=== PATIENT | male | born 1995 | race Caucasian/White ===

== ENCOUNTER 2023-01-25 16:38 | Inpatient (IN) | payer BC ==
[2023-01-25] MEDS ORDERED: HYDROmorphone 0.5 MG/0.5 ML SYRINGE IVP STA (17:17)
--- NOTE | 2023-01-25 17:21 | ED ---
General Adult HPI - General Chief complaint: Fall Stated complaint: Fall Time Seen by Provider: 01/25/23 17:13 Source: patient, RN notes reviewed Limitations: no limitations - History of Present Illness Initial comments: Patient is a pleasant 27-year-old male presenting to the emergency department following fall. Incident occurred around 2:00 today. Patient fell from a ladder, approximately 8 feet. Patient was putting stuff in his attic. Patient does not recall hitting the ground. Patient believes he did hit his head. Patient has mild headache. Patient has discomfort mostly the left side of his trunk posteriorly. Patient does feel a little bit short of breath. Patient has been ambulatory. Patient denies extremity injury. - Related Data Home Medications Medication Instructions Recorded Confirmed Gabapentin [Neurontin] 300 mg PO BID 01/25/23 01/25/23 cloNIDine HCL [Catapres] 0.1 mg PO BID 01/25/23 01/25/23 traZODone HCL [Desyrel] 50 mg PO HS 01/25/23 01/25/23 Allergies Allergy/AdvReac Type Severity Reaction Status Date / Time No Known Allergies Allergy Verified 01/25/23 18:39 Review of Systems ROS Statement: Those systems with pertinent positive or pertinent negative responses have been documented in the HPI. ROS Other: All systems not noted in ROS Statement are negative. Constitutional: Denies: fever Eyes: Denies: eye pain ENT: Denies: ear pain Respiratory: Reports: as per HPI, dyspnea Endocrine: Denies: fatigue Gastrointestinal: Denies: abdominal pain Genitourinary: Denies: dysuria Musculoskeletal: Reports: as per HPI, back pain Skin: Denies: rash Neurological: Denies: weakness, confusion Past Medical History Past Medical History: No Reported History History of Any Multi-Drug Resistant Organisms: None Reported Past Surgical History: No Surgical Hx Reported Smoking Status: Current every day smoker Past Alcohol Use History: Occasional Past Drug Use History: None Reported General Exam Limitations: no limitations General appearance: alert, in no apparent distress Head exam: Present: other (Mild soft tissue swelling left posterior parietal) Eye exam: Present: normal appearance, PERRL, EOMI. Absent: nystagmus ENT exam: Present: normal oropharynx Neck exam: Present: normal inspection. Absent: tenderness Respiratory exam: Present: decreased breath sounds (Left-sided) Cardiovascular Exam: Present: tachycardia GI/Abdominal exam: Present: soft. Absent: tenderness Extremities exam: Present: normal inspection, full ROM. Absent: tenderness Neurological exam: Present: alert, oriented X3, CN II-XII intact. Absent: motor sensory deficit Expanded Motor strength exam: RUE: 5, LUE: 5, RLE: 5, LLE: 5 Eye Response: (4) open spontaneously Motor Response: (6) obeys commands Verbal Response: (5) oriented Psychiatric exam: Present: normal affect, normal mood Skin exam: Present: normal color Course Vital Signs 01/25/23 01/25/23 01/25/23 16:43 17:30 18:00 Temperature 97.3 F L Pulse Rate 144 H 112 H 120 H Respiratory 18 20 20 Rate Blood Pressure 118/73 114/83 147/96 O2 Sat by Pulse 99 99 96 Oximetry 01/25/23 18:30 Temperature Pulse Rate 106 H Respiratory 16 Rate Blood Pressure 141/73 O2 Sat by Pulse 99 Oximetry - Reevaluation(s) Reevaluation #1: 01/25/23 17:25 Case was discussed with Dr. Atkinson who agrees with upgrade patient to a level II trauma. He also agrees with Thora vent 01/25/23 17:58 Chest x-ray interpreted by myself prior to discussion with Dr. Atkinson did show large pneumothorax on the left side. This was discussed also with Dr. Pat. Patient did go to computed tomography scan and Thora vent was placed immediately upon return back to the room. EKG Findings - EKG Results: EKG: interpreted by ERMD (Atrial tachycardia.rsr v1v2), normal axis, normal QRS, normal ST/T EKG shows: tachycardia Procedures - Chest Tube Insertion Consent Obtained: written consent Side of Procedure: left Indication: Pneumothorax Placed on monitor/pulse oximetry: Yes Site Prep: Chloroprep Local Anesthesia: Lidocaine 1% Insertion Site: Other (Second/third intercostal space mid clavicular line) Scalpel: #11 Tube Size ([place]): Other (Thora vent was used) Repeat X-ray Results: Other (Pneumothorax decreased to approximately 25%.) Patient Tolerated Procedure: well, no complications Medical Decision Making - Medical Decision Making Was pt. sent in by a medical professional or institution (, PA, PASSENGER COACH DRIVER, urgent care, hospital, or fpc...) When possible be specific @ -[No] Did you speak to anyone other than the patient for history (EMS, parent, family, police, friend...)? What history was obtained from this source @ -[No] Did you review nursing and triage notes (agree or disagree)? Why? @ -[I reviewed and agree with nursing and triage notes] Were old charts reviewed (outside hosp., previous admission, EMS record, old EKG, old radiological studies, urgent care reports/EKG's, fpc records)? Report findings @ -[No old charts were reviewed] Differential Diagnosis (chest pain, altered mental status, abdominal pain women, abdominal pain men, vaginal bleeding, weakness, fever, dyspnea, syncope, headache, dizziness, GI bleed, back pain, seizure, CVA, palpatations, mental health)? @ -[Differential Headache: Migraine, tension, cluster, carbon monoxide, central venous thrombosis, pension karma temporal arteritis, acute closure glaucoma, intercranial hemorrhage, mastoiditis, sinusitis, head injury, this is not meant to be an all-inclusive list. EKG interpreted by me (3pts min.). @ -[As above] X-rays interpreted by me (1pt min.). @ -[Chest x-ray shows 50% pneumothorax on the left. Pelvis x-ray shows no acute process. Repeat chest x-ray shows improvement of pneumothorax] CT interpreted by me (1pt min.). @ -Reports reviewed U/S interpreted by me (1pt. min.). @ -[None done] What testing was considered but not performed or refused? (CT, X-rays, U/S, labs)? Why? @ -[None] What meds were considered but not given or refused? Why? @ -[None] Did you discuss the management of the patient with other professionals (professionals i.e. , PA, PASSENGER COACH DRIVER, lab, RT, psych nurse, social services aide, welder fitter, teacher, safety officer, piano case and bench assembler)? Give summary @ -Case was discussed with Dr. Atkinson, who will admit for trauma call. He does request [place] and pulmonary consult. Was smoking cessation discussed for >3mins.? @ -[No] Was critical care preformed (if so, how long)? @ -[40 minutes critical care time] Were there social determinants of health that impacted care today? How? (Homelessness, low income, unemployed, alcoholism, drug addiction, trans portation, low edu. Level, literacy, decrease access to med. care, custodial, rehab)? @ -[No] Was there de-escalation of care discussed even if they declined (Discuss DNR or withdrawal of care, Hospice)? DNR status @ -[No] What co-morbidities impacted this encounter? (DM, HTN, Smoking, COPD, CAD, Cancer, CVA, ARF, Chemo, Hep., AIDS, mental health diagnosis, sleep apnea, morbid obesity)? @ -[None] Was patient admitted / discharged? Hospital course, mention meds given and route, prescriptions, significant lab abnormalities, going to OR and other pertinent info. @ -Patient reevaluated and updated. Patient resting comfortably in bed. Patient will be admitted Undiagnosed new problem with uncertain prognosis? @ -[No] Drug Therapy requiring intensive monitoring for toxicity (Heparin, Nitro, Insulin, Cardizem)? @ -[No] Were any procedures done? @ -[No] Diagnosis/symptom? @ -Pneumothorax, lumbar transverse process fracture Acute, or Chronic, or Acute on Chronic? @ -Acute, acute Uncomplicated (without systemic symptoms) or Complicated (systemic symptoms)? @ -[default] Side effects of treatment? @ -[No] Exacerbation, Progression, or Severe Exacerbation? @ -[No] Poses a threat to life or bodily function? How? (Chest pain, [place], [place], pneumonia, PE, COPD, DKA, ARF, appy, cholecystitis, CVA, Diverticulitis, Homicidal, Suicidal, threat to staff... and all critical care pts) @ -[No] - Lab Data Result diagrams: 01/25/23 17:23 01/25/23 17:23 Lab Results 01/25/23 01/25/23 01/25/23 Range/Units 17: 17: 17: WBC 19.8 H (3.8-10.6) k/uL RBC 4.89 (4.30-5.90) m/uL Hgb 15.8 (13.0-17.5) gm/dL Hct 45.1 (39.0-53.0) % MCV 92.3 (80.0-100.0) fL MCH 32.4 (25.0-35.0) pg MCHC 35.0 (31.0-37.0) g/dL RDW 13.3 (11.5-15.5) % Plt Count 429 (150-450) k/uL MPV 7.0 Neutrophils % 91 % Lymphocytes % 4 % Monocytes % 3 % Eosinophils % 1 % Basophils % 1 % Neutrophils # 18.1 H (1.3-7.7) k/uL Lymphocytes # 0.8 L (1.0-4.8) k/uL Monocytes # 0.7 (0-1.0) k/uL Eosinophils # 0.2 (0-0.7) k/uL Basophils # 0.1 (0-0.2) k/uL PT 10.5 (9.0-12.0) sec INR 1.0 (<1.2) APTT 23.3 (22.0-30.0) sec Sodium 139 (137-145) mmol/L Potassium 4.2 (3.5-5.1) mmol/L Chloride 104 (98-107) mmol/L Carbon Dioxide 27 (22-30) mmol/L Anion Gap 8 mmol/L BUN 12 (9-20) mg/dL Creatinine 0.84 (0.66-1.25) mg/dL Est GFR (CKD-EPI)AfAm >90 (>60 ml/min/1.73 sqM) Est GFR (CKD-EPI)NonAf >90 (>60 ml/min/1.73 sqM) Glucose 106 H (74-99) mg/dL Calcium 9.4 (8.4-10.2) mg/dL Total Bilirubin 1.7 H (0.2-1.3) mg/dL AST 74 H (17-59) U/L ALT 46 (4-49) U/L Alkaline Phosphatase 70 (38-126) U/L Total Protein 7.7 (6.3-8.2) g/dL Albumin 5.0 (3.5-5.0) g/dL Serum Alcohol <10 mg/dL Blood Type Recheck Bld Type Recheck Status Spec Expiration Date 01/25/23 Range/Units 17:23 WBC (3.8-10.6) k/uL RBC (4.30-5.90) m/uL Hgb (13.0-17.5) gm/dL Hct (39.0-53.0) % MCV (80.0-100.0) fL MCH (25.0-35.0) pg MCHC (31.0-37.0) g/dL RDW (11.5-15.5) % Plt Count (150-450) k/uL MPV Neutrophils % % Lymphocytes % % Monocytes % % Eosinophils % % Basophils % % Neutrophils # (1.3-7.7) k/uL Lymphocytes # (1.0-4.8) k/uL Monocytes # (0-1.0) k/uL Eosinophils # (0-0.7) k/uL Basophils # (0-0.2) k/uL PT (9.0-12.0) sec INR (<1.2) APTT (22.0-30.0) sec Sodium (137-145) mmol/L Potassium (3.5-5.1) mmol/L Chloride (98-107) mmol/L Carbon Dioxide (22-30) mmol/L Anion Gap mmol/L BUN (9-20) mg/dL Creatinine (0.66-1.25) mg/dL Est GFR (CKD-EPI)AfAm (>60 ml/min/1.73 sqM) Est GFR (CKD-EPI)NonAf (>60 ml/min/1.73 sqM) Glucose (74-99) mg/dL Calcium (8.4-10.2) mg/dL Total Bilirubin (0.2-1.3) mg/dL AST (17-59) U/L ALT (4-49) U/L Alkaline Phosphatase (38-126) U/L Total Protein (6.3-8.2) g/dL Albumin (3.5-5.0) g/dL Serum Alcohol mg/dL Blood Type Recheck No Previous Record Bld Type Recheck Status CABO Indicated Spec Expiration Date 01/28/20232322 Critical Care Time Critical Care Time: Yes Total Critical Care Time: 40 Disposition Clinical Impression: Fall, Pneumothorax, Lumbar transverse process fracture Disposition: ADMITTED IP TO THIS [facility] Condition: Serious Is patient prescribed a controlled substance at d/c from ED?: No Referrals: Javier Ceballos DO [Primary Care Provider] - 1-2 days Time of Disposition: 18:54
--- NOTE | 2023-01-25 17:27 | XR ---
EXAMINATION TYPE: XR chest 2V DATE OF EXAM: 01/25/2023 COMPARISON: NONE HISTORY: Left-sided rib pain Fall. TECHNIQUE: 2 views FINDINGS: Heart and mediastinum are normal. There is a left-sided pneumothorax approximately 50%. The re is increased density at the left lung base likely from hiatal hernia. Right lung is clear. No pleu ral effusion. No rib fracture seen. No evidence of fracture of the thoracic spine. IMPRESSION: Large left-sided pneumothorax. Atelectasis is patchy in the left lung. No obvious rib fra cture. Possible hiatal hernia.
[2023-01-25 17:37] LABS: Basophils # (A) 0.1 k/uL (0-0.2); Basophils % (A) 1 %; Eosinophils # (A) 0.2 k/uL (0-0.7); Eosinophils % (A) 1 %; HCT 45.1 % (39.0-53.0); HGB 15.8 gm/dL (13.0-17.5); Lymphocytes # (A) 0.8 k/uL (1.0-4.8); Lymphocytes % (A) 4 %; MCH 32.4 pg (25.0-35.0); MCV 92.3 fL (80.0-100.0); Monocytes # (A) 0.7 k/uL (0-1.0); Monocytes % (A) 3 %; Neutrophils # (A) 18.1 k/uL (1.3-7.7); Neutrophils % (A) 91 %; Platelet Count 429 k/uL (150-450); RBC 4.89 m/uL (4.30-5.90); RDW 13.3 % (11.5-15.5); WBC 19.8 k/uL (3.8-10.6)
[2023-01-25 17:50] LABS: ALT 46 U/L (4-49); AST 74 U/L (17-59); African American GFR (CKD) >90 (>60 ml/min/1.73 sqM); Alcohol <10 mg/dL; Alkaline Phosphatase 70 U/L (38-126); Anion Gap 8 mmol/L; Blood Urea Nitrogen 12 mg/dL (9-20); Calcium 9.4 mg/dL (8.4-10.2); Carbon Dioxide 27 mmol/L (22-30); Chloride 104 mmol/L (98-107); Glucose 106 mg/dL (74-99); Non-African American GFR(CKD) >90 (>60 ml/min/1.73 sqM); Partial Thromboplastin Time 23.3 sec (22.0-30.0); Potassium 4.2 mmol/L (3.5-5.1); Prothrombin Time 10.5 sec (9.0-12.0); Sodium 139 mmol/L (137-145); Total Bilirubin 1.7 mg/dL (0.2-1.3); Total Protein 7.7 g/dL (6.3-8.2)
--- NOTE | 2023-01-25 17:50 | XR ---
EXAMINATION TYPE: XR pelvis AP view DATE OF EXAM: 01/25/2023 COMPARISON: NONE HISTORY: Pain TECHNIQUE: Single view FINDINGS: Pelvic ring is intact. Proximal femurs and hip joints are intact. Sacroiliac joints are int act. IMPRESSION: Normal pelvis. No fracture.
--- NOTE | 2023-01-25 18:12 | CT ---
EXAMINATION TYPE: CT brain cspine wo con DATE OF EXAM: 01/25/2023 COMPARISON: None HISTORY: fall, no loc CT DLP: 1268.8 mGycm Automated exposure control for dose reduction was used. Images of the brain and cervical spine obtained with no contrast. Ventricles have normal size. There is no mass effect or midline shift. No sign of intracranial hemorr carmina. The calvarium is intact. The skull base is intact. There is normal aeration of the mastoid sinu ses. There is normal spacing and alignment of the cervical vertebra. Posterior elements are intact. F acet joints are intact. Prevertebral soft tissues are intact. IMPRESSION: Normal unenhanced head CT scan. No evidence of traumatic injury. Normal CT scan of the cervical spine.
--- NOTE | 2023-01-25 18:22 | CT ---
EXAMINATION TYPE: CT ChestAbdPelvis w con DATE OF EXAM: 01/25/2023 COMPARISON: None HISTORY: fall, SOB, right flank pain CT DLP: 894.8 mGycm Automated exposure control for dose reduction was used. CONTRAST: Performed with IV Contrast, patient injected with 100 mL of Isovue 300. Images obtained from the thoracic inlet to the floor of the pelvis with the IV contrast. There is approximately 50% left-sided pneumothorax. There is some infiltrate and atelectasis left low er lobe with fluid level could relate to pulmonary contusion and hemorrhage. There is small amount of pleural fluid. Heart size is normal. Thoracic aorta is intact. No aneurysm. No mediastinal adenopath y. There are no hilar masses. The right lung is clear. Liver spleen pancreas appear intact. Stomach is intact. Gallbladder appears intact. The bile ducts ar e nondilated. There is no adrenal mass. Kidneys show satisfactory contrast opacification. No hydronephrosis. Ureter s are not dilated. No retroperitoneal adenopathy. The bladder distends smoothly. No inguinal hernia. No free fluid in the pelvis. No pelvic mass. No inguinal hernia. Appendix not well seen. No sign of t hickened appendix. The thoracic and lumbar vertebra appear intact. No compression fracture. Sternum is intact. No eviden ce of rib fracture. The bony pelvis is intact. The hip joints are intact. Sacroiliac joints are intac t. Hip joints are intact. Sacroiliac joints appear normal. There is nondisplaced fracture left transverse process of L1 and L2-L3 and L4. The shoulder joints appear intact. No displaced rib fracture. IMPRESSION: Left-sided pneumothorax with cavitating infiltrate left lower lobe that could be pulmonary contusion and hemorrhage. Multiple left transverse process fractures of the lumbar spine. No rib fracture seen. No evidence of organ injury within the abdomen pelvis.
--- NOTE | 2023-01-25 18:24 | XR ---
EXAMINATION TYPE: XR chest 1V portable DATE OF EXAM: 01/25/2023 COMPARISON: NONE HISTORY: Chest tube TECHNIQUE: Single view FINDINGS: Heart is normal. There is some airspace infiltrate left lower lobe. Right lung is clear. T here is left side pneumothorax 30%. IMPRESSION: Left-sided pneumothorax improved compared to recent exam. Chest tube in good position. Le ft side pulmonary infiltrate and atelectasis without change.
[2023-01-25] MEDS ORDERED: NALOXONE 0.4 MG/ML 1 ML VIAL IV PRN (18:54)
[2023-01-25] MEDS ORDERED: ACETAMINOPHEN TAB 325 MG TAB PO PRN (18:54)
[2023-01-25] MEDS ORDERED: HYDROmorphone 0.5 MG/0.5 ML SYRINGE IVP PRN (18:54)
[2023-01-25] MEDS ORDERED: ONDANSETRON 4 MG/2 ML VIAL IVP PRN (18:54)
[2023-01-25] MEDS: SODIUM CHLORIDE 0.9% 1,000 ML IV SCH (19:29)
[2023-01-25] MEDS: FAMOTIDINE 20 MG TAB PO SCH (22:12)
[2023-01-25] MEDS: HYDROmorphone 1 MG/ML 1 ML SYRINGE IVP PRN (22:12)
[2023-01-25 22:39] LABS: Amphetamine Screen,Urine Not Detected (NotDetected); Barbiturate Screen,Urine Not Detected (NotDetected); Benzodiazepines Screen,Urine Not Detected (NotDetected); Cocaine Screen,Urine Not Detected (NotDetected); Methadone Screen, Urine Not Detected (NotDetected); Opiate Screen,Urine Detected (NotDetected); Oxycodone Screen, Urine Not Detected (NotDetected); Phencyclidine Screen,Urine Not Detected (NotDetected); Tricyclic Antidepressant,Urine Not Detected (NotDetected); Urn Cannabinoid Scrn Not Detected (NotDetected)
[2023-01-26 07:55] LABS: Basophils % (A) 0 %; Eosinophils # (A) 0.2 k/uL (0-0.7); Eosinophils % (A) 2 %; HCT 39.9 % (39.0-53.0); HGB 13.2 gm/dL (13.0-17.5); Lymphocytes # (A) 1.6 k/uL (1.0-4.8); Lymphocytes % (A) 17 %; MCH 31.5 pg (25.0-35.0); MCHC 33.1 g/dL (31.0-37.0); Mean Platelet Volume 7.2; Monocytes # (A) 0.5 k/uL (0-1.0); Monocytes % (A) 5 %; Neutrophils # (A) 7.3 k/uL (1.3-7.7); Neutrophils % (A) 76 %; Platelet Count 308 k/uL (150-450); RDW 13.4 % (11.5-15.5); WBC 9.6 k/uL (3.8-10.6)
[2023-01-26 08:14] LABS: ALT 33 U/L (4-49); AST 40 U/L (17-59); African American GFR (CKD) >90 (>60 ml/min/1.73 sqM); Albumin 3.8 g/dL (3.5-5.0); Alkaline Phosphatase 53 U/L (38-126); Anion Gap 5 mmol/L; Blood Urea Nitrogen 11 mg/dL (9-20); Calcium 8.3 mg/dL (8.4-10.2); Carbon Dioxide 31 mmol/L (22-30); Chloride 102 mmol/L (98-107); Glucose 99 mg/dL (74-99); Non-African American GFR(CKD) >90 (>60 ml/min/1.73 sqM); Sodium 138 mmol/L (137-145); Total Bilirubin 1.5 mg/dL (0.2-1.3); Total Protein 6.1 g/dL (6.3-8.2)
--- NOTE | 2023-01-26 08:31 | P.GSHP ---
History of Present Illness H&P Date: 01/25/23 Chief Complaint: Fall from ladder The patient was seen at 1997 The 27-year-old male who presented to the emergency room after falling from a ladder when he was placing items in his attic. Patient states the injury occurred around 2 PM. He was seen in the emergency room around 5 PM. Patient was worked up for left sided trunk pain and shortness of breath. Patient's found have a left pneumothorax. Patient received a thoravent by the emergency room doctor. Patient's workup was found to have multiple left transverse process fractures of the lumbar spine. Past Medical History Past Medical History: No Reported History History of Any Multi-Drug Resistant Organisms: None Reported Past Surgical History: No Surgical Hx Reported Past Anesthesia/Blood Transfusion Reactions: Unable to Obtain Past Psychological History: ADD/ADHD Smoking Status: Current every day smoker Past Alcohol Use History: Occasional Past Drug Use History: None Reported Medications and Allergies Home Medications Medication Instructions Recorded Confirmed Type Gabapentin [Neurontin] 300 mg PO BID 01/25/23 01/25/23 History cloNIDine HCL [Catapres] 0.1 mg PO BID 01/25/23 01/25/23 History traZODone HCL [Desyrel] 50 mg PO HS 01/25/23 01/25/23 History Allergies Allergy/AdvReac Type Severity Reaction Status Date / Time No Known Allergies Allergy Verified 01/25/23 18:39 Surgical - Exam Vital Signs Temp Pulse Resp BP Pulse Ox 97.3 F L 144 H 18 118/73 99 01/25/23 16:43 01/25/23 16:43 01/25/23 16:43 01/25/23 16:43 01/25/23 16:43 - General well developed, no distress - Eyes PERRL - ENT normal pinna - Neck no masses - Respiratory Left thoravent normal expansion - Cardiovascular Rhythm: regular - Abdomen Abdomen: soft, non tender - Integumentary no rash - Neurologic normal coordination, normal sensation - Musculoskeletal Left-sided thoracic pain - Psychiatric oriented to time, oriented to person, oriented to place Results - Labs 01/26/23 07:36 01/26/23 07:36 Abnormal Lab Results - Last 24 Hours (Table) 01/25/23 01/25/23 01/25/23 Range/Units 17:23 17:23 21:50 WBC 19.8 H (3.8-10.6) k/uL RBC (4.30-5.90) m/uL Neutrophils # 18.1 H (1.3-7.7) k/uL Lymphocytes # 0.8 L (1.0-4.8) k/uL Carbon Dioxide (22-30) mmol/L Glucose 106 H (74-99) mg/dL Calcium (8.4-10.2) mg/dL Total Bilirubin 1.7 H (0.2-1.3) mg/dL AST 74 H (17-59) U/L Total Protein (6.3-8.2) g/dL Urine Opiates Screen Detected H (NotDetected) 01/26/23 01/26/23 Range/Units 07:36 07:36 WBC (3.8-10.6) k/uL RBC 4.20 L (4.30-5.90) m/uL Neutrophils # (1.3-7.7) k/uL Lymphocytes # (1.0-4.8) k/uL Carbon Dioxide 31 H (22-30) mmol/L Glucose (74-99) mg/dL Calcium 8.3 L (8.4-10.2) mg/dL Total Bilirubin 1.5 H (0.2-1.3) mg/dL AST (17-59) U/L Total Protein 6.1 L (6.3-8.2) g/dL Urine Opiates Screen (NotDetected) Diabetes panel 01/25/23 01/26/23 Range/Units 17:23 07:36 Sodium 139 138 (137-145) mmol/L Potassium 4.2 4.0 (3.5-5.1) mmol/L Chloride 104 102 (98-107) mmol/L Carbon Dioxide 27 31 H (22-30) mmol/L BUN 12 11 (9-20) mg/dL Creatinine 0.84 0.93 (0.66-1.25) mg/dL Glucose 106 H 99 (74-99) mg/dL Calcium 9.4 8.3 L (8.4-10.2) mg/dL AST 74 H 40 (17-59) U/L ALT 46 33 (4-49) U/L Alkaline Phosphatase 70 53 (38-126) U/L Total Protein 7.7 6.1 L (6.3-8.2) g/dL Albumin 5.0 3.8 (3.5-5.0) g/dL Calcium panel 01/25/23 01/26/23 Range/Units 17: 07:36 Calcium 9.4 8.3 L (8.4-10.2) mg/dL Albumin 5.0 3.8 (3.5-5.0) g/dL Pituitary panel 01/25/23 01/26/23 Range/Units 17: 07:36 Sodium 139 138 (137-145) mmol/L Potassium 4.2 4.0 (3.5-5.1) mmol/L Chloride 104 102 (98-107) mmol/L Carbon Dioxide 27 31 H (22-30) mmol/L BUN 12 11 (9-20) mg/dL Creatinine 0.84 0.93 (0.66-1.25) mg/dL Glucose 106 H 99 (74-99) mg/dL Calcium 9.4 8.3 L (8.4-10.2) mg/dL Adrenal panel 01/25/23 01/26/23 Range/Units 17: 07:36 Sodium 139 138 (137-145) mmol/L Potassium 4.2 4.0 (3.5-5.1) mmol/L Chloride 104 102 (98-107) mmol/L Carbon Dioxide 27 31 H (22-30) mmol/L BUN 12 11 (9-20) mg/dL Creatinine 0.84 0.93 (0.66-1.25) mg/dL Glucose 106 H 99 (74-99) mg/dL Calcium 9.4 8.3 L (8.4-10.2) mg/dL Total Bilirubin 1.7 H 1.5 H (0.2-1.3) mg/dL AST 74 H 40 (17-59) U/L ALT 46 33 (4-49) U/L Alkaline Phosphatase 70 53 (38-126) U/L Total Protein 7.7 6.1 L (6.3-8.2) g/dL Albumin 5.0 3.8 (3.5-5.0) g/dL - Imaging CT scan - abdomen: pending, report reviewed (Left-sided pneumothorax with possible pulmonary contusion. Multiple left transverse process fractures of lumbar spine) Assessment and Plan Assessment: Left pneumothorax. Multiple transverse process fracture lumbar spine Patient will be observed. He will have repeat chest x-ray performed. Orthopedics will evaluate his transverse process fractures.
[2023-01-26] MEDS: FAMOTIDINE 20 MG TAB PO SCH ×2 (08:56→19:54)
[2023-01-26] MEDS: HYDROcodone/APAP 5-325MG 1 EACH TAB PO PRN (08:56)
--- NOTE | 2023-01-26 09:00 | P.CNOR ---
History of Present Illness - [facility] Consult date: 01/26/23 Consult reason: other (Lumbar transverse process fractures) History of present illness: History of Presenting Illness Patient is a pleasant 27-year-old male who presented to the ER after a fall. Patient states that he was on a ladder placing items into his attic. He does not recall losing consciousness or actually landing on the ground. Patient fell approximately 8 feet landing on his left side. Patient denies any medical or orthopedic history. Patient is currently resting in bed. He does have complaint of generalized pain. Patient states that his pain is managed on current regimen as long as he is not moving. Informed patient that physical therapy will be into work with him today. Patient denies any numbness or tingling to bilateral upper or lower extremities. Patient is able to perform all bed exercises with slight limitation due to pain and stiffness. Patient did have left pneumothorax, Thoravent is present. Patient has been afebrile, denies nausea/vomiting or chest pain. Review of Systems Pertinent positives and negatives as discussed in HPI, a complete review of systems was performed and all other systems are negative. Physical Examination General: The patient is awake and alert, in no acute distress Skin: Skin is warm and dry with no obvious rashes or lesions. Eye: Pupils are equal, round and reactive to light, extra-ocular movements are intact; there is normal conjunctiva bilaterally. Neck: The neck is supple, there is no tenderness and ROM intact. Cardiovascular: There is a regular rate and rhythm. No murmur, rub or gallop is appreciated. Respiratory: Left Thoravent present Gastrointestinal: Soft, non-distended, non-tender abdomen. Back: There is no tenderness to palpation in the paralumbar, parathoracic or buttocks region. There is no obvious deformity. Musculoskeletal: ROM limited secondary to pain and stiffness. Shoulder abduction 5/5, elbow flexors 5/5, wrist dorsiflexors 5/5. finger abductor 5/5, pipe washer 5/5, hip flexor 5/5, knee flexor 5/5, ankle dorsiflexor 5/5, ankle plantarflexion 5/5 and extensor hallucis 5/5. Neurological: CN 2-12 intact. There are no obvious motor or sensory deficits. Movement and coordination equal and intact. Sensory exam to light touch intact C5-T1 and intact from L2-S1. Reflexes 2/4 in bilateral upper and lower extremities. Negative Hoffmans, babinski, and clonus signs. Psychiatric: Cooperative, appropriate mood & affect, normal judgment. Assessment and Plan Fall with trauma L1-L4 left transverse process fractures Generalized pain At this time we do not recommend any emergent/urgent orthopedic surgical intervention. Patient may follow-up with Dr. Ortiz's office for further evaluation as needed. Please do not hesitate to contact us for any further questions. 1. Appreciate medical team management 2. Prescription for LSO brace has been placed in chart 3. Pain management - Dilaudid [place], patient may benefit from muscle relaxer 4. PT/OT - weightbearing as tolerated with a walker as needed. Limit lifting, bending, twisting to 5-10lbs. 5. Appreciate consult I reviewed and discussed this case with my attending Dr. Ortiz, whom has reviewed this chart and films and is in agreement with assessment and plan of care as outlined above. I have personally seen and examined the patient, performed the documentation and the assessment and plan as written. Number of minutes spent on the visit: 20. Past Medical History Past Medical History: No Reported History History of Any Multi-Drug Resistant Organisms: None Reported Past Surgical History: No Surgical Hx Reported Past Anesthesia/Blood Transfusion Reactions: Unable to Obtain Past Psychological History: ADD/ADHD Smoking Status: Current every day smoker Past Alcohol Use History: Occasional Past Drug Use History: None Reported Medications and Allergies Home Medications Medication Instructions Recorded Confirmed Type Gabapentin [Neurontin] 300 mg PO BID 01/25/23 01/25/23 History cloNIDine HCL [Catapres] 0.1 mg PO BID 01/25/23 01/25/23 History traZODone HCL [Desyrel] 50 mg PO HS 01/25/23 01/25/23 History Allergies Allergy/AdvReac Type Severity Reaction Status Date / Time No Known Allergies Allergy Verified 01/25/23 18:39 Results - Labs Labs: Abnormal Lab Results - Last 24 Hours (Table) 01/25/23 01/25/23 01/25/23 Range/Units 17:23 17: 21:50 WBC 19.8 H (3.8-10.6) k/uL Neutrophils # 18.1 H (1.3-7.7) k/uL Lymphocytes # 0.8 L (1.0-4.8) k/uL Glucose 106 H (74-99) mg/dL Total Bilirubin 1.7 H (0.2-1.3) mg/dL AST 74 H (17-59) U/L Urine Opiates Screen Detected H (NotDetected) H & H 01/25/23 Range/Units 17:23 Hgb 15.8 (13.0-17.5) gm/dL Hct 45.1 (39.0-53.0) % Coagulation 01/25/23 Range/Units 17:23 INR 1.0 (<1.2) Result Diagrams: 01/26/23 07:36 01/26/23 07:36
--- NOTE | 2023-01-26 09:03 | XR ---
EXAMINATION TYPE: XR chest 1V portable DATE OF EXAM: 01/26/2023 COMPARISON: NONE HISTORY: Chest tube TECHNIQUE: Single frontal view of the chest is obtained. FINDINGS: There is left lower lobe infiltrate. No sizable pleural effusion.. There is a less than 5% left apical pneumothorax improved from prior exam.. The cardiac silhouette size is within normal li mits. The osseous structures are intact. IMPRESSION: 1. Interval reduction size of the left apical pneumothorax now measuring less than 5% 2. Stable retrocardiac left lower lobe infiltrate.
[2023-01-26] MEDS ORDERED: CYCLOBENZAPRINE 10 MG TAB PO PRN (10:01)
--- NOTE | 2023-01-26 10:04 | P.PN ---
Subjective Progress Note Date: 01/26/23 CHIEF COMPLAINT: Fall with trauma HISTORY OF PRESENT ILLNESS: Patient fell from an 8 foot ladder landing on cement. Complaining of left trunk pain. Found to have a left pneumothorax as well as a fracture in his lumbar spine. He has Thoravent chest tube for the left pneumothorax. He is being followed by orthopedic service. He is complaining of pain in the left shoulder. He has difficulty with lifting the left arm. Denies any abdominal pain. Denies any nausea or vomiting. Reports that his breathing has shown improvement. Patient does report having difficulty sleeping due to pain. Afebrile. Chest x-ray from this morning interval reduction in size of the left pneumothorax now measuring less than 5%. Stable retrocardiac left lower lobe infiltrate. Afebrile. WBC 19.8-9.[address]2 pl atelets 308 sons 138 potassium 4.0 creatinine 0.93 total bilirubin 1.7 down 1.5 AST 74 down to 40 ALT 33 alk phos 53 PHYSICAL EXAM: VITAL SIGNS: Reviewed. GENERAL: Well-developed in no acute distress. HEENT: No sclera icterus. Extraocular movements grossly intact. Moist buccal mucosa. Head is atraumatic, normocephalic. CHEST: left thoravent in place ABDOMEN: Soft. Nondistended. Nontender. NEUROLOGIC: Alert and oriented. Cranial nerves II through XII grossly intact. Extremities: Patient is having difficulty lifting the left arm. Has pain in left shoulder. Able to move lower extremities. ASSESSMENT: 1. Fall with trauma 2. Traumatic left pneumothorax status post Thoravent 3. L1 to L4 left transverse process fractures 4. Possible pulmonary contusion PLAN: -Continue pain management -Evergreen added for oral pain medication -Appreciate orthopedic recommendations. We'll add Flexeril for muscle spasms -Orthopedics ordered an LSO brace for spinal fracture -Encouraged patient to use incentive spirometer -Continue to work with PT OT -Consult medicine service for medical management Physician Blindmaker note has been reviewed by physician. Signing provider agrees with the documented findings, assessment, and plan of care. Objective - Vital Signs Vital signs: Vital Signs Temp 98.4 F 01/26/23 08:00 Pulse 70 01/26/23 08:00 Resp 18 01/26/23 08:00 BP 121/77 01/26/23 08:00 Pulse Ox 100 01/26/23 08:00 FiO2 Intake & Output 01/25/23 01/26/23 01/26/23 18:59 06:59 18:59 Output Total 425 Balance -425 Weight 58.967 kg 58.967 kg Output: Urine 425 Other: Voiding Method Urinal # Voids 2 # Bowel Movements 0 - Labs CBC & Chem 7: 01/26/23 07:36 01/26/23 07:36 Labs: Abnormal Lab Results - Last 24 Hours (Table) 01/25/23 01/25/23 01/25/23 Range/Units 17:23 17:23 21:50 WBC 19.8 H (3.8-10.6) k/uL RBC (4.30-5.90) m/uL Neutrophils # 18.1 H (1.3-7.7) k/uL Lymphocytes # 0.8 L (1.0-4.8) k/uL Carbon Dioxide (22-30) mmol/L Glucose 106 H (74-99) mg/dL Calcium (8.4-10.2) mg/dL Total Bilirubin 1.7 H (0.2-1.3) mg/dL AST 74 H (17-59) U/L Total Protein (6.3-8.2) g/dL Urine Opiates Screen Detected H (NotDetected) 01/26/23 01/26/23 Range/Units 07:36 07:36 WBC (3.8-10.6) k/uL RBC 4.20 L (4.30-5.90) m/uL Neutrophils # (1.3-7.7) k/uL Lymphocytes # (1.0-4.8) k/uL Carbon Dioxide 31 H (22-30) mmol/L Glucose (74-99) mg/dL Calcium 8.3 L (8.4-10.2) mg/dL Total Bilirubin 1.5 H (0.2-1.3) mg/dL AST (17-59) U/L Total Protein 6.1 L (6.3-8.2) g/dL Urine Opiates Screen (NotDetected)
--- NOTE | 2023-01-26 10:41 | XR ---
EXAMINATION TYPE: XR shoulder complete LT DATE OF EXAM: 01/26/2023 COMPARISON: NONE HISTORY: Obtained TECHNIQUE: Three views are submitted. FINDINGS: The osseous structures are intact. There is no acute fracture or dislocation. The AC joint is maint ained. Chest tube seen with a less than 5% left apical pneumothorax. IMPRESSION: 1. No acute osseous abnormality. 2. Less than 5% left apical pneumothorax.
--- NOTE | 2023-01-26 12:08 | P.GSCN ---
History of Present Illness Consult date: 01/26/23 Reason for Consult: Traumatic left pneumothorax, status post fall from ladder Requesting physician: Christina Mcmanus History of present illness: This is a 27-year-old gentleman who follows on an outpatient basis with Dr. Alta Ceballos for his primary care. He has a past medical history for ADHD, chronic ongoing nicotine dependence and every other day EtOH use drinking greater than 7 beers per week. Yesterday 01/25/2023 the patient presented to the emergency department here at [facility] status post fall from a ladder around 8-9 feet, landing on concrete. The patient reports that the fall was witnessed by one of his friends, reports that he lost consciousness, did not lose bowel or bladder function, and when he regained consciousness a few seconds after the fall was complaining of shortness of breath, and mild headache and pain to his left shoulder blade and left flank area. The patient reports that he was on the latter placing automobile items in the attic. Patient also states that his friend that witnessed the fall had to help him up off the floor status post his fall. Initially the patient was not going to report to the hospital, although he states that he did cough up a little blood and his brother convinced him to come to the hospital due to the hemoptysis. He denies any fatigue, abdominal pain, loss of bowel or bladder function, weakness, confusion, fever, chills, nausea, vomiting, lightheadedness or visual disturbances. Initial laboratory results showed a WBC count of 19.8, hemoglobin 15.8, hematocrit 45.1, platelets 429, PT 10.5, INR 1.0, PTT 23.3, sodium 139, potassium 4.2, CO2 27, BUN 12, creatinine 0.84, glucose 106, total bilirubin 1.7, AST 74, and ALT 46. A chest x-ray was completed in the emergency department showing a large left-sided pneumothorax, atelectasis patchy in the left lung, no obvious rib fractures and a possible hiatal hernia. Due to the findings of a large left-sided pneumothorax on chest x-ray a computed tomography scan of his chest pelvis and abdomen were completed which demonstrated a large left-sided pneumothorax with cavitating infiltrate left lower lobe possibly pulmonary contusion or hemorrhage, multiple left transverse process fractures of the lumbar spine L1, L2, L3 and L4 and no evidence of organ injury within the abdomen/pelvis. The patient also had a computed tomography scan of his brain C- spine without contrast which showed normal on enhanced head computed tomography scan, no evidence of traumatic injury and normal computed tomography scan of the cervical spine. Subsequently, due to the findings of a large left-sided pneumothorax a left Thoravent was placed by the emergency room physician and his chest x-ray this morning 01/26/2023 shows an interval reduction in size of the left pneumothorax now measuring less than 5%, and stable retrocardiac left lower lobe infiltrate. Due to the patient's traumatic left-sided pneumothorax a consult was placed to cardiothoracic surgery for further evaluation and tr eatment recommendations. Review of Systems A 14 point review of systems was completed and was negative except as mentioned in the HPI. Past Medical History Past Medical History: No Reported History History of Any Multi-Drug Resistant Organisms: None Reported Past Surgical History: No Surgical Hx Reported Past Anesthesia/Blood Transfusion Reactions: Unable to Obtain Past Psychological History: ADD/ADHD Smoking Status: Current every day smoker Past Alcohol Use History: Occasional Additional Past Alcohol Use History / Comment(s): Drinks greater than 7 beers Per week Past Drug Use History: None Reported - Past Family History Mother Family Medical History: Hypertension Father Family Medical History: Cancer (Skin cancer) Additional Family Medical History / Comment(s): History of colitis Brother(s) Family Medical History: Hypertension Medications and Allergies Home Medications Medication Instructions Recorded Confirmed Type Gabapentin [Neurontin] 300 mg PO BID 01/25/23 01/25/23 History cloNIDine HCL [Catapres] 0.1 mg PO BID 01/25/23 01/25/23 History traZODone HCL [Desyrel] 50 mg PO HS 01/25/23 01/25/23 History Allergies Allergy/AdvReac Type Severity Reaction Status Date / Time No Known Allergies Allergy Verified 01/25/23 18:39 Surgical - Exam Vital Signs Temp Pulse Resp BP Pulse Ox 97.3 F L 144 H 18 118/73 99 01/25/23 16:43 01/25/23 16:43 01/25/23 16:43 01/25/23 16:43 01/25/23 16:43 - General well developed, well nourished, no distress, no pain, moderate pain (To his left shoulder blade area and left flank area) - Eyes PERRL, normal ocular movement, no pale, no icteric - ENT normal pinna, normal nares, normal mucosa, no hearing loss, no congestion - Neck Neck is supple, no JVD. no masses, no bruits, trachea midline, no venous distension - Respiratory Lung sounds essentially clear throughout, diminished to his bilateral bases. Respirations are symmetrical and nonlabored. Left chest Thoravent in place with positive air leak, no drainage present. - Cardiovascular Regular rhythm and rate. S1 and S2 present, negative for S3, gallop or murmur. No edema present. - Abdomen Abdomen is soft, nontender and nondistended. Active bowel sounds present all 4 abdominal quadrants. No guarding or rigidity. No organomegaly appreciated. - Genitourinary Deferred - Rectum Deferred - Integumentary Small area of redness to his left parietal area. no rash, no growths - Neurologic No focal deficits. normal coordination, normal sensation - Musculoskeletal Moves all 4 extremities, some difficulty lifting his left arm due to pain to his left shoulder. Equal strength in his bilateral lower extremities. normal gait - Psychiatric oriented to time, oriented to person, oriented to place, speech is normal, memory intact Results - Labs 01/26/23 07:36 01/26/23 07:36 Abnormal Lab Results - Last 24 Hours (Table) 01/25/23 01/25/23 01/25/23 Range/Units 17:23 17:23 21:50 WBC 19.8 H (3.8-10.6) k/uL RBC (4.30-5.90) m/uL Neutrophils # 18.1 H (1.3-7.7) k/uL Lymphocytes # 0.8 L (1.0-4.8) k/uL Carbon Dioxide (22-30) mmol/L Glucose 106 H (74-99) mg/dL Calcium (8.4-10.2) mg/dL Total Bilirubin 1.7 H (0.2-1.3) mg/dL AST 74 H (17-59) U/L Total Protein (6.3-8.2) g/dL Urine Opiates Screen Detected H (NotDetected) 01/26/23 01/26/23 Range/Units 07:36 07:36 WBC (3.8-10.6) k/uL RBC 4.20 L (4.30-5.90) m/uL Neutrophils # (1.3-7.7) k/uL Lymphocytes # (1.0-4.8) k/uL Carbon Dioxide 31 H (22-30) mmol/L Glucose (74-99) mg/dL Calcium 8.3 L (8.4-10.2) mg/dL Total Bilirubin 1.5 H (0.2-1.3) mg/dL AST (17-59) U/L Total Protein 6.1 L (6.3-8.2) g/dL Urine Opiates Screen (NotDetected) Diabetes panel 01/25/23 01/26/23 Range/Units 17: 07:36 Sodium 139 138 (137-145) mmol/L Potassium 4.2 4.0 (3.5-5.1) mmol/L Chloride 104 102 (98-107) mmol/L Carbon Dioxide 27 31 H (22-30) mmol/L BUN 12 11 (9-20) mg/dL Creatinine 0.84 0.93 (0.66-1.25) mg/dL Glucose 106 H 99 (74-99) mg/dL Calcium 9.4 8.3 L (8.4-10.2) mg/dL AST 74 H 40 (17-59) U/L ALT 46 33 (4-49) U/L Alkaline Phosphatase 70 53 (38-126) U/L Total Protein 7.7 6.1 L (6.3-8.2) g/dL Albumin 5.0 3.8 (3.5-5.0) g/dL Calcium panel 01/25/23 01/26/23 Range/Units 17: 07:36 Calcium 9.4 8.3 L (8.4-10.2) mg/dL Albumin 5.0 3.8 (3.5-5.0) g/dL Pituitary panel 01/25/23 01/26/23 Range/Units 17: 07:36 Sodium 139 138 (137-145) mmol/L Potassium 4.2 4.0 (3.5-5.1) mmol/L Chloride 104 102 (98-107) mmol/L Carbon Dioxide 27 31 H (22-30) mmol/L BUN 12 11 (9-20) mg/dL Creatinine 0.84 0.93 (0.66-1.25) mg/dL Glucose 106 H 99 (74-99) mg/dL Calcium 9.4 8.3 L (8.4-10.2) mg/dL Adrenal panel 01/25/23 01/26/23 Range/Units 17:23 07:36 Sodium 139 138 (137-145) mmol/L Potassium 4.2 4.0 (3.5-5.1) mmol/L Chloride 104 102 (98-107) mmol/L Carbon Dioxide 27 31 H (22-30) mmol/L BUN 12 11 (9-20) mg/dL Creatinine 0.84 0.93 (0.66-1.25) mg/dL Glucose 106 H 99 (74-99) mg/dL Calcium 9.4 8.3 L (8.4-10.2) mg/dL Total Bilirubin 1.7 H 1.5 H (0.2-1.3) mg/dL AST 74 H 40 (17-59) U/L ALT 46 33 (4-49) U/L Alkaline Phosphatase 70 53 (38-126) U/L Total Protein 7.7 6.1 L (6.3-8.2) g/dL Albumin 5.0 3.8 (3.5-5.0) g/dL - Imaging Chest x-ray: report reviewed, image reviewed CT scan - chest: report reviewed, image reviewed Assessment and Plan Assessment: 1. Traumatic left pneumothorax, status post fall from ladder, status post Thoravent placement by the emergency room physician 2. Possible pulmonary contusion, computed tomography scan of the chest showing cavitating infiltrate left lower lobe 3. L1 to L4 transverse process fractures 4. History of ADHD 5. Chronic ongoing nicotine dependence, smokes half a pack of cigarettes per day 6. EtOH use, greater than 7 beers per week Plan: The patient was seen and examined at his bedside on the cardiac stepdown unit. His chart and diagnostics were reviewed. This case was discussed in detail with Dr. Vikram Villatoro from cardiothoracic surgery. Keep left Thoravent in place and capped, continue to monitor for air leak resolution. Continue to monitor daily chest x-rays and resolution of left-sided pneumothorax. Encourage use of incentive spirometry 10 times every hour while awake. Pain control per current when necessary orders, Toradol ordered for additional pain control. Risk modification including smoking cessation has been discussed with the patient. Medical management other comorbidities per primary care service and other consultants. More recommendations to follow based on patient's clinical course. Thank you Dr. Mcmanus for this consult and we look forward to working with you in the care of this patient. I have personally seen and examined the patient, performed the documentation and the assessment and plan as written. 30 minutes spent on the visit . Floyd GOETZ
[2023-01-26 12:23] VITALS: BMI 17.6
[2023-01-26] MEDS: KETOROLAC 15 MG/ML 1 ML VIAL IVP SCH ×2 (12:58→17:41)
--- NOTE | 2023-01-26 13:27 | P.PN ---
Progress Note - Text Progress Note Date: 01/26/23 Patient had c/o of left shoulder pain with limited ROM. Left shoulder xray has been obtained and reviewed. No acute osseous abnormalities. Orthopedics will be signing off at this time. Patient may follow up in office as needed. Information will be placed in discharge instructions.
--- NOTE | 2023-01-26 14:29 | P.CNPUL ---
History of Present Illness Consult date: 01/26/23 Requesting physician: Ahsan Atkinson Reason for consult: dyspnea, chest pain, abnormal CXR/CT Chief complaint: Left-sided chest wall pain History of present illness: This is a very pleasant 27-year-old male patient with a history of ADHD, chronic and ongoing tobacco dependence. He presented to the emergency room yesterday after sustaining a fall from a ladder approximately 8 feet landing on cement. He did apparently lose consciousness for a few seconds. We'll obtain a fall he was having some hemoptysis and was brought into the emergency room. Computed tomography scan of the head revealed no traumatic injury. Chest x-ray revealed a large left-sided pneumothorax and patchy atelectasis at the left lung base. No noted fractures. A computed tomography scan of the chest, pelvis and abdomen noted again the large left-sided pneumothorax with a cavitating infiltrates a left lower lobe secondary to home a contusion or hemorrhage. There was multiple left transverse process fractures of the lumbar spine L1-L4. No evidence of organ injury in the abdomen/pelvis. A left-sided Thora-vent was placed in the emergency department. White count 9.6. Hemoglobin 13.2. Sodium 138. Potassi um 4.0. Bicarb 31. BUN 11. Creatinine 0.93. Urine drug screen was positive for opiates. Alcohol less than 10. He was admitted for further observation. He is seen today in consultation on the selective care unit. He is just coming back from a shoulder x-ray as he still having some left shoulder discomfort. No acute fractures noted. Less than 5% left apical pneumothorax on x-ray. Coughing up some small amount of dark blood. He is maintaining O2 saturations up to 100% on 2 L nasal cannula. Afebrile. Hemodynamically stable. Review of Systems REVIEW OF SYSTEMS: CONSTITUTIONAL: Denies any recent significant weight loss or weight gain. EYES: Denies change in vision. EARS, NOSE, MOUTH, THROAT: Denies headaches, denies sore throat. CARDIOVASCULAR: Denies chest pain, palpitations or syncopal episodes. RESPIRATORY: As before shortness of breath, cough, hemoptysis. GASTROINTESTINAL: Denies change in appetite, denies abdominal pain GENITOURINARY: Denies hematuria, denies infections. MUSKULOSKELETAL: Left shoulder and thorax pain secondary to fall. INTEGUMENTARY: Denies rash, denies eczema. NEUROLOGICAL: Denies recent memory loss, no recent seizure activity. PSYCHIATRIC: Denies anxiety, denies depression. HEMATOLOGIC/LYMPHATIC: Denies anemia, denies enlarged lymph nodes. Past Medical History Past Medical History: No Reported History History of Any Multi-Drug Resistant Organisms: None Reported Past Surgical History: No Surgical Hx Reported Past Anesthesia/Blood Transfusion Reactions: Unable to Obtain Past Psychological History: ADD/ADHD Smoking Status: Current every day smoker Past Alcohol Use History: Occasional Additional Past Alcohol Use History / Comment(s): Drinks greater than 7 beers Per week Past Drug Use History: None Reported - Past Family History Mother Family Medical History: Hypertension Father Family Medical History: Cancer (Skin cancer) Additional Family Medical History / Comment(s): History of colitis Brother(s) Family Medical History: Hypertension Medications and Allergies Home Medications Medication Instructions Recorded Confirmed Type Gabapentin [Neurontin] 300 mg PO BID 01/25/23 01/25/23 History cloNIDine HCL [Catapres] 0.1 mg PO BID 01/25/23 01/25/23 History traZODone HCL [Desyrel] 50 mg PO HS 01/25/23 01/25/23 History Allergies Allergy/AdvReac Type Severity Reaction Status Date / Time No Known Allergies Allergy Verified 01/25/23 18:39 Physical Exam Vitals: Vital Signs Temp Pulse Pulse Resp BP BP Pulse Ox 01/26/23 12:57 98.1 F 84 18 119/87 100 01/26/23 08:00 98.4 F 70 18 121/77 100 01/26/23 03:32 86 16 127/61 99 01/25/23 23:59 90 15 121/62 99 01/25/23 20:37 108 H 18 138/72 100 01/25/23 19:28 102 H 16 130/76 98 01/25/23 18:30 106 H 16 141/73 99 01/25/23 18:00 120 H 20 147/96 96 01/25/23 17:30 112 H 20 114/83 99 01/25/23 16:43 97.3 F L 144 H 18 118/73 99 Intake and Output 01/25/23 01/26/23 01/26/23 22:59 06:59 14:59 Output Total 425 Balance -425 Output: Urine 425 Other: Voiding Method Urinal # Voids 1 2 # Bowel Movements 0 Weight 58.967 kg 58.967 kg GENERAL EXAM: Alert, pleasant 27-year-old male, on 2 L nasal cannula, comfortable in no apparent distress. HEAD: Normocephalic. EYES: Normal reaction of pupils, equal size. NOSE: Clear with pink turbinates. THROAT: No erythema or exudates. NECK: No masses, no JVD. CHEST: No chest wall deformity. LUNGS: Equal air entry with faint crackles in the left base. CVS: S1 and S2 normal with no audible murmur, regular rhythm. ABDOMEN: No hepatosplenomegaly, normal bowel sounds, no guarding or rigidity. SPINE: No scoliosis or deformity SKIN: No rashes CENTRAL NERVOUS SYSTEM: No focal deficits, tone is normal in all 4 extremities. EXTREMITIES: There is no peripheral edema. No clubbing, no cyanosis. Peripheral pulses are intact. Results - Laboratory Findings CBC and BMP: 01/26/23 07:36 01/26/23 07:36 PT/INR, D-dimer PT 10.5 sec (9.0-12.0) 01/25/23 17:23 INR 1.0 (<1.2) 01/25/23 17:23 Abnormal lab findings: Abnormal Labs 01/25/23 01/25/23 01/25/23 17:23 17:23 21:50 WBC 19.8 H RBC Neutrophils # 18.1 H Lymphocytes # 0.8 L Carbon Dioxide Glucose 106 H Calcium Total Bilirubin 1.7 H AST 74 H Total Protein Urine Opiates Screen Detected H 01/26/23 01/26/23 07:36 07:36 WBC RBC 4.20 L Neutrophils # Lymphocytes # Carbon Dioxide 31 H Glucose Calcium 8.3 L Total Bilirubin 1.5 H AST Total Protein 6.1 L Urine Opiates Screen - Diagnostic Findings Chest x-ray: image reviewed CT scan - chest: image reviewed Assessment and Plan Assessment: Dyspnea secondary to traumatic left-sided pneumothorax following a fall from a ladder at approximately 8 feet. Status post Thora-Vent placement on 01/25/2023 Hemoptysis secondary to above with suspected pulmonary contusion Left sided chest wall and left shoulder pain. No evidence of fractures History of chronic and ongoing tobacco dependence History of ADHD Plan: The patient was seen and evaluated Chest x-ray, CAT scans, medications and labs reviewed Thora-vent remains in place and capped per CT services Follow up chest x-ray pending Adequate pain control Encouraged the increased use of the incentive spirometer We will continue to follow and make further recommendations based on his clinical status I have personally seen and examined the patient, performed the documentation and the assessment and plan as written. Number of minutes spent on the visit: 20.
--- NOTE | 2023-01-26 22:31 | P.CONS ---
History of Present Illness - Reason for Consult Consult date: 01/26/23 Medical management - Chief Complaint Status post fall - History of Present Illness Patient is a 27-year-old male with a known history of ADD/ADHD, currently everyday smoker presents to ER status post fall from ladder approximately about 8 feet height. Patient states that he is slipped and fell on the concrete, landed on his left shoulder. Patient states that he did lose his consciousness for about few seconds. He was also having hemoptysis and was brought to ER. Otherwise patient denies any recent illnesses. On admission chest x-ray showed left-sided pneumothorax. Atelectasis PIC in the left lung. No obvious rib fracture. Possible hiatal hernia. X-ray pelvis showed no fracture normal pelvis. CT head and cervical spine showed no acute abnormality. Abdomen CT showed left- sided pneumothorax with cavitating infiltrate left lower lobe that could be pulmonary contusion and hemorrhage. Multiple left transverse process fractures of the lumbar spine. No rib fracture seen. No evidence of organ injury within the abdomen pelvis. Laboratory data showed WBC 19.8 hemoglobin 15.8 and platelets 429 Sodium 139 potassium 4.2 chloride 104 bicarb is 27 BUN 12 and creatinine 0.84 total bilirubin was 1.7 and AST 74 ALT 46 alk phos 70 and Urine toxicology showed opiates. Review of Systems Constitutional: Patient denies any fever or chills . no Generalized weakness. Abdomen: Patient denied any nausea or vomiting or abd. pain Cardiovascular: Patient denies any chest pain or short of breath no palpitations. Respiratory: patient denied any cough . no sputum production. No shortness of breath Neurologic: Patient denied any numbness or tingling headache. Musculoskeletal: Patient denies any complaints of joint swelling or deformity. Complains of left shoulder pain and rib pain. Skin: Negative Psychiatric: Negative Endocrine: No heat or cold intolerance. No recent weight gain. Genitourinary: No dysuria or hematuria. All other 14 point ROS negative except the above Past Medical History Past Medical History: No Reported History History of Any Multi-Drug Resistant Organisms: None Reported Past Surgical History: No Surgical Hx Reported Past Anesthesia/Blood Transfusion Reactions: Unable to Obtain Past Psychological History: ADD/ADHD Smoking Status: Current every day smoker Past Alcohol Use History: Occasional Additional Past Alcohol Use History / Comment(s): Drinks greater than 7 beers Per week Past Drug Use History: None Reported - Past Family History Mother Family Medical History: Hypertension Father Family Medical History: Cancer (Skin cancer) Additional Family Medical History / Comment(s): History of colitis Brother(s) Family Medical History: Hypertension Medications and Allergies Home Medications Medication Instructions Recorded Confirmed Type Gabapentin [Neurontin] 300 mg PO BID 01/25/23 01/25/23 History cloNIDine HCL [Catapres] 0.1 mg PO BID 01/25/23 01/25/23 History traZODone HCL [Desyrel] 50 mg PO HS 01/25/23 01/25/23 History Allergies Allergy/AdvReac Type Severity Reaction Status Date / Time No Known Allergies Allergy Verified 01/25/23 18:39 Physical Exam Vitals: Vital Signs Temp Pulse Pulse Resp BP BP Pulse Ox 01/26/23 12:57 98.1 F 84 18 119/87 100 01/26/23 08:00 98.4 F 70 18 121/77 100 01/26/23 03:32 86 16 127/61 99 01/25/23 23:59 90 15 121/62 99 01/25/23 20:37 108 H 18 138/72 100 01/25/23 19:28 102 H 16 130/76 98 01/25/23 18:30 106 H 16 141/73 99 01/25/23 18:00 120 H 20 147/96 96 01/25/23 17:30 112 H 20 114/83 99 01/25/23 16:43 97.3 F L 144 H 18 118/73 99 Intake and Output 01/25/23 01/26/23 01/26/23 22:59 06:59 14:59 Output Total 425 Balance -425 Output: Urine 425 Other: Voiding Method Urinal # Voids 1 2 # Bowel Movements 0 Weight 58.967 kg 58.967 kg PHYSICAL EXAMINATION: Patient is lying in the bed comfortably, no acute distress, awake alert and oriented.. HEENT: Normocephalic. Neck is supple. Pupils reactive. Nostrils clear. Oral cavity is moist. Neck reveals no JVD, carotid bruits, or thyromegaly. CHEST EXAMINATION: Trachea is central. Symmetrical expansion. Lung hadley clear to auscultation and percussion. CARDIAC: Normal S1, S2 with no gallops. No murmurs ABDOMEN: Soft. Bowel sounds present. Nontender. No organomegaly. No abdominal bruits. Extremities: reveal no edema. No clubbing or cyanosis Neurologically awake, alert, oriented x3 with well-coordinated movements. No fo chin deficits noted Skin: No rash or skin lesions. Psychiatric: Coperative. Nonsuicidal, Musculoskeletal: No joint swelling or deformity. Normal range of motion. Results CBC & Chem 7: 01/26/23 07:36 01/26/23 07:36 Labs: Abnormal Lab Results - Last 24 Hours (Table) 01/25/23 01/25/23 01/25/23 Range/Units 17:23 17:23 21:50 WBC 19.8 H (3.8-10.6) k/uL RBC (4.30-5.90) m/uL Neutrophils # 18.1 H (1.3-7.7) k/uL Lymphocytes # 0.8 L (1.0-4.8) k/uL Carbon Dioxide (22-30) mmol/L Glucose 106 H (74-99) mg/dL Calcium (8.4-10.2) mg/dL Total Bilirubin 1.7 H (0.2-1.3) mg/dL AST 74 H (17-59) U/L Total Protein (6.3-8.2) g/dL Urine Opiates Screen Detected H (NotDetected) 01/26/23 01/26/23 Range/Units 07:36 07:36 WBC (3.8-10.6) k/uL RBC 4.20 L (4.30-5.90) m/uL Neutrophils # (1.3-7.7) k/uL Lymphocytes # (1.0-4.8) k/uL Carbon Dioxide 31 H (22-30) mmol/L Glucose (74-99) mg/dL Calcium 8.3 L (8.4-10.2) mg/dL Total Bilirubin 1.5 H (0.2-1.3) mg/dL AST (17-59) U/L Total Protein 6.1 L (6.3-8.2) g/dL Urine Opiates Screen (NotDetected) Assessment and Plan Assessment: Left-sided pneumothorax. Status post Thora vent placement in the ER Status post mechanical fall from the ladder about 8 feet height. Hemoptysis likely due to lung contusion and hemorrhage. No active symptoms currently. Multiple left transverse process fractures of the lumbar spine Leukocytosis likely reactive resolved now ADD/ADHD Currently everyday smoker DVT prophylaxis with SCDs. Plan: Patient is status post Thora vent placement on 01/25/[address] surgery and pulmonary is on board. Encourage incentive spirometry and DVT prophylaxis SCDs. Continue pain management and follow-up closely. Continued home medications and further recommendations based on the clinical course. Follow-up CBC and BMP tomorrow. Time with Patient: Greater than 30
[2023-01-27] MEDS: KETOROLAC 15 MG/ML 1 ML VIAL IVP SCH ×5 (00:09→23:02)
[2023-01-27] MEDS: HYDROmorphone 1 MG/ML 1 ML SYRINGE IVP PRN (00:09)
[2023-01-27] MEDS: SODIUM CHLORIDE 0.9% 1,000 ML IV SCH (01:34)
--- NOTE | 2023-01-27 07:25 | XR ---
EXAMINATION TYPE: XR chest 1V portable DATE OF EXAM: 01/27/2023 6:35 AM COMPARISON: Chest radiographs from 01/26/2023 TECHNIQUE: XR chest 1V portable Portable AP radiograph of the chest. CLINICAL INDICATION:Male, 27 years old with history of Pneumothorax; FINDINGS: Lungs/Pleura: There is no evidence of pleural effusion, focal consolidation, or pneumothorax. Pulmonary vascularity: Unremarkable. Heart/mediastinum: Cardiomediastinal silhouette is unremarkable. Musculoskeletal: No acute osseous pathology. Other findings: None Lines/Tubes: Left thoracotomy tube is present without evidence of pneumothorax. IMPRESSION: No acute cardiopulmonary disease/process. Left thoracotomy device without evidence for pneumothorax.
--- NOTE | 2023-01-27 08:42 | P.PN ---
Subjective Progress Note Date: 01/27/23 Principal diagnosis: Traumatic left-sided pneumothorax status post fall from ladder, possible pulmonary contusion, cavitating infiltrate left lower lobe on CT scan, L1 to L4 transverse process fractures, hemoptysis. History of ADHD, current tobacco dependence, EtOH use POD #2 placement of left-sided thoravent by the emergency room physicians The patient was seen and examined this morning sitting up in bed in no acute distress. States pain is somewhat controlled on current medication regimen, his main complaint for pain is his back with movement. Denies shortness of breath. Currently on room air with oxygen saturation in the mid 90s. Left-sided thoravent remains present off suction, patient still has air leak with coughing. Chest x-ray reviewed. No other new concerns. Objective - Vital Signs Vital signs: Vital Signs Temp 96.6 F L 01/27/23 07:30 Pulse 67 01/27/23 07:30 Resp 18 01/27/23 07:30 BP 118/70 01/27/23 07:30 Pulse Ox 94 L 01/27/23 04:00 FiO2 Intake & Output 01/26/23 01/27/23 01/27/23 18:59 06:59 18:59 Intake Total 118 480 Output Total 550 Balance 118 -70 Weight 58.967 kg Intake: Oral 118 480 Output: Urine 550 Other: Voiding Method Urinal - Exam CONSTITUTIONAL: Appears mostly comfortable, cooperative, no acute distress RESPIRATORY: Lungs sounds diminished bilaterally. Respirations even, nonlabored. Currently on room air with oxygen saturation 94%. Able to achieve 1000 mL on incentive spirometry. Strong cough. CARDIOVASCULAR: S1, S2 present. Regular rate and rhythm, sinus rhythm on telemetry. Palpable peripheral pulses bilaterally. No edema present GASTROINTESTINAL: Abdomen soft, nontender, nondistended. Active bowel sounds present 4 quadrants. Tolerating diet GENITOURINARY: Continues to void INTEGUMENTARY: Skin is warm and dry NEUROLOGIC: Cranial nerves II through XII intact MUSKULOSKELETAL: Able to move all extremities, strength equal bilaterally PSYCHIATRIC: Alert and oriented to person place and time, appropriate affect, intact judgment and insight INVASIVE LINES AND TUBES: Left sided thoravent present without suction, positive air leak with coughing as evidenced by fluctuation of the right diaphragm - Allied health notes Allied health notes reviewed: nursing - Labs CBC & Chem 7: 01/26/23 07:36 01/26/23 07:36 - Imaging and Cardiology Chest x-ray: report reviewed, image reviewed Assessment and Plan Assessment: 1. Traumatic left-sided pneumothorax status post fall from ladder, status post placement of left-sided thoravent by the emergency room physician 2. Possible pulmonary contusion 3. Cavitating infiltrate left lower lobe on CT scan 4. L1 to L4 transverse process fractures 5. Hemoptysis 6. ADHD 7. Current tobacco dependence 8. EtOH use Plan: 1. Continue thoravent for another 24 hours, monitor for air leak resolution 2. Encourage incentive spirometry 10 times every hour while awake 3. Pain control per medication regimen 4. Will monitor daily x-rays 5. Risk factor modification including complete smoking cessation discussed with the patient 6. Increase activity as tolerated. Patient is waiting for LSO brace per orthopedic recommendations 7. Medical management of the comorbidities per internal medicine/trauma services 8. More recommendations to follow
[2023-01-27] MEDS: FAMOTIDINE 20 MG TAB PO SCH ×2 (08:53→21:55)
[2023-01-27] MEDS: HYDROcodone/APAP 5-325MG 1 EACH TAB PO PRN ×2 (08:53→20:36)
[2023-01-27] MEDS: GABAPENTIN 300 MG CAP PO SCH ×2 (08:54→21:53)
[2023-01-27 09:29] LABS: Basophils # (A) 0.1 k/uL (0-0.2); Basophils % (A) 1 %; Eosinophils # (A) 0.2 k/uL (0-0.7); Eosinophils % (A) 3 %; HCT 41.7 % (39.0-53.0); HGB 13.7 gm/dL (13.0-17.5); Lymphocytes # (A) 1.1 k/uL (1.0-4.8); Lymphocytes % (A) 18 %; MCH 31.6 pg (25.0-35.0); MCHC 32.7 g/dL (31.0-37.0); MCV 96.6 fL (80.0-100.0); Mean Platelet Volume 7.2; Monocytes # (A) 0.3 k/uL (0-1.0); Monocytes % (A) 4 %; Neutrophils # (A) 4.4 k/uL (1.3-7.7); Neutrophils % (A) 73 %; Platelet Count 287 k/uL (150-450); RBC 4.32 m/uL (4.30-5.90); RDW 13.4 % (11.5-15.5)
[2023-01-27 09:51] LABS: ALT 29 U/L (4-49); AST 29 U/L (17-59); African American GFR (CKD) >90 (>60 ml/min/1.73 sqM); Albumin 3.9 g/dL (3.5-5.0); Alkaline Phosphatase 41 U/L (38-126); Anion Gap 5 mmol/L; Blood Urea Nitrogen 14 mg/dL (9-20); Calcium 8.7 mg/dL (8.4-10.2); Carbon Dioxide 31 mmol/L (22-30); Chloride 104 mmol/L (98-107); Glucose 104 mg/dL (74-99); Non-African American GFR(CKD) >90 (>60 ml/min/1.73 sqM); Potassium 4.8 mmol/L (3.5-5.1); Sodium 140 mmol/L (137-145); Total Bilirubin 1.4 mg/dL (0.2-1.3); Total Protein 6.2 g/dL (6.3-8.2)
[2023-01-27] MEDS ORDERED: LORazepam 0.5 MG TAB PO PRN (11:29)
[2023-01-27] MEDS ORDERED: LORazepam 1 MG TAB PO PRN ×3 (11:29)
[2023-01-27] MEDS ORDERED: THIAMINE 100 MG/ML 2 ML VIAL IM STA (11:29)
--- NOTE | 2023-01-27 12:37 | P.PN ---
Subjective Progress Note Date: 01/27/23 This is a very pleasant 27-year-old male patient with a history of ADHD, chronic and ongoing tobacco dependence. He presented to the emergency room yesterday after sustaining a fall from a ladder approximately 8 feet landing on cement. He did apparently lose consciousness for a few seconds. We'll obtain a fall he was having some hemoptysis and was brought into the emergency room. Computed tomography scan of the head revealed no traumatic injury. Chest x-ray revealed a large left-sided pneumothorax and patchy atelectasis at the left lung base. No noted fractures. A computed tomography scan of the chest, pelvis and abdomen noted again the large left-sided pneumothorax with a cavitating infiltrates a left lower lobe secondary to home a contusion or hemorrhage. There was multiple left transverse process fractures of the lumbar spine L1-L4. No evidence of organ injury in the abdomen/pelvis. A left-sided Thora-vent was placed in the emergency department. White count 9.6. Hemoglobin 13.2. Sodium 138. Potassium 4.0. Bicarb 31. BUN 11. Creatinine 0.93. Urine drug screen was positive for opiates. Alcohol less than 10. He was admitted for further observation. He is seen today in consultation on the selective care unit. He is just coming back from a shoulder x-ray as he still having some left shoulder discomfort. No acute fractures noted. Less than 5% left apical pneumothorax on x-ray. Coughing up some small amount of dark blood. He is maintaining O2 saturations up to 100% on 2 L nasal cannula. Afebrile. Hemodynamically stable. The patient is seen today 01/27/2023 in follow-up on the selective care unit. He is currently sitting up in bed. Awake and alert in no acute distress. Left- sided Thora vent remains in place and capped. Still with a leak when coughing. Chest x-ray shows no evidence of pneumothorax. No acute cardiopulmonary process. Continues to work with the incentive spirometer. White count 6.0. Hemoglobin 13.7. Sodium 140. Potassium 4.8. Bicarb 31. BUN 14. Creatinine 0.82. Glucose 104. Adequate pain control. Objective - Vital Signs Vital signs: Vital Signs Temp 96.6 F L 01/27/23 07:30 Pulse 67 01/27/23 07:30 Resp 18 01/27/23 07:30 BP 118/70 01/27/23 07:30 Pulse Ox 94 L 01/27/23 04:00 FiO2 Intake & Output 01/26/23 01/27/23 01/27/23 18:59 06:59 18:59 Intake Total 118 480 118 Output Total 550 Balance 118 -70 118 Weight 58.967 kg Intake: Oral 118 480 118 Output: Urine 550 Other: Voiding Method Urinal - Exam GENERAL EXAM: Alert, pleasant 27-year-old male, on room air, comfortable in no apparent distress. HEAD: Normocephalic. EYES: Normal reaction of pupils, equal size. NOSE: Clear with pink turbinates. THROAT: No erythema or exudates. NECK: No masses, no JVD. CHEST: No chest wall deformity. Left sided Thora-Vent in place. Capped. Air leak present with cough. LUNGS: Equal air entry with faint crackles in the left base. CVS: S1 and S2 normal with no audible murmur, regular rhythm. ABDOMEN: No hepatosplenomegaly, normal bowel sounds, no guarding or rigidity. SPINE: No scoliosis or deformity SKIN: No rashes CENTRAL NERVOUS SYSTEM: No focal deficits, tone is normal in all 4 extremities. EXTREMITIES: There is no peripheral edema. No clubbing, no cyanosis. Peripheral pulses are intact. - Labs CBC & Chem 7: 01/27/23 08:27 01/27/23 08:27 Labs: Abnormal Lab Results - Last 24 Hours (Table) 01/27/23 Range/Units 08:27 Carbon Dioxide 31 H (22-30) mmol/L Glucose 104 H (74-99) mg/dL Total Bilirubin 1.4 H (0.2-1.3) mg/dL Total Protein 6.2 L (6.3-8.2) g/dL Assessment and Plan Assessment: Dyspnea secondary to traumatic left-sided pneumothorax following a fall from a ladder at approximately 8 feet. Status post Thora-Vent placement on 01/25/2023. Today's chest x-ray shows no evidence of pneumothorax. Persistent leak with cough. Thora vent is capped. Hemoptysis secondary to above with suspected pulmonary contusion Left sided chest wall and left shoulder pain. No evidence of fractures History of chronic and ongoing tobacco dependence History of ADHD Plan: The patient was seen and evaluated Chest x-ray, medications and labs reviewed Thora-vent remains in place and capped Follow up chest x-ray in a.m. Adequate pain control Encouraged the increased use of the incentive spirometer Educated regarding the importance of complete smoking cessation. NicoDerm patch is offered We will continue to follow I have personally seen and examined the patient, performed the documentation and the assessment and plan as written. Number of minutes spent on the visit: 10.
[2023-01-27] MEDS: MULTIVITAMINS, THERA 1 EACH TAB PO SCH (12:38)
[2023-01-27] MEDS: NICOTINE 21MG/24HR PATCH TRANSDERM SCH (12:38)
--- NOTE | 2023-01-27 14:34 | P.PN ---
Subjective Progress Note Date: 01/27/23 CHIEF COMPLAINT: Fall with trauma HISTORY OF PRESENT ILLNESS: Patient fell from an 8 foot ladder landing on cement. Complaining of left trunk pain. Found to have a left pneumothorax as well as a fracture in his lumbar spine. He has Thoravent chest tube for the left pneumothorax. Patient followed by cardiothoracic and pulmonary service. Patient's Thoravent does have a leak with coughing. Chest x-ray for today shows no evidence of pneumothorax. Cardiothoracic service has ordered a repeat chest x-ray in a.m. Patient did receive his back brace for the lumbar fracture. Orthopedic surgery has cleared him for discharge. Patient does report drinking a six pack of beer at least every 3 days. Patient denies any new pain. Patient's sputum still blood-tinged. He does report his pain is currently controlled. He is afebrile. On room air satting at 99%. WBC is 6 Hgb 13.7 platelets 287 sounds 140 potassium is 4.8 creatinine 0.82 PHYSICAL EXAM: VITAL SIGNS: Reviewed. GENERAL: Well-developed in no acute distress. HEENT: No sclera icterus. Extraocular movements grossly intact. Moist buccal mucosa. Head is atraumatic, normocephalic. CHEST: left thoravent in place ABDOMEN: Soft. Nondistended. Nontender. NEUROLOGIC: Alert and oriented. Cranial nerves II through XII grossly intact. Extremities: Patient is having difficulty lifting the left arm. Has pain in left shoulder. Able to move lower extremities. ASSESSMENT: 1. Fall with trauma 2. Traumatic left pneumothorax status post Thoravent 3. L1 to L4 left transverse process fractures 4. Pulmonary contusion 5. Heavy alcohol use PLAN: -Awaiting further recommendations per pulmonary and cardiothoracic service -Continue pain management -Encouraged patient to increase activity level -Encouraged patient to use incentive spirometer -Consult medicine service for medical management -Discussed smoking cessation. Nicotine patch added -[facility] protocol added for monitoring of alcohol withdrawal Physician Aircraft Part Assembler note has been reviewed by physician. Signing provider agrees with the documented findings, assessment, and plan of care. Objective - Vital Signs Vital signs: Vital Signs Temp 98.1 F 01/27/23 12:15 Pulse 72 01/27/23 12:15 Resp 17 01/27/23 14:00 BP 126/64 01/27/23 12:15 Pulse Ox 99 01/27/23 12:15 FiO2 Intake & Output 01/26/23 01/27/23 01/27/23 18:59 06:59 18:59 Intake Total 118 480 236 Output Total 550 Balance 118 -70 236 Weight 58.967 kg Intake: Oral 118 480 236 Output: Urine 550 Other: Voiding Method Urinal - Labs CBC & Chem 7: 01/27/23 08:27 01/27/23 08:27 Labs: Abnormal Lab Results - Last 24 Hours (Table) 01/27/23 Range/Units 08:27 Carbon Dioxide 31 H (22-30) mmol/L Glucose 104 H (74-99) mg/dL Total Bilirubin 1.4 H (0.2-1.3) mg/dL Total Protein 6.2 L (6.3-8.2) g/dL
[2023-01-27] MEDS ORDERED: traZODone HCL 50 MG TAB PO SCH (21:00)
[2023-01-28] MEDS: HYDROmorphone 1 MG/ML 1 ML SYRINGE IVP PRN (01:39)
[2023-01-28] MEDS: SODIUM CHLORIDE 0.9% 1,000 ML IV SCH (04:52)
[2023-01-28] MEDS: KETOROLAC 15 MG/ML 1 ML VIAL IVP SCH ×2 (06:28→14:54)
--- NOTE | 2023-01-28 07:11 | XR ---
EXAMINATION TYPE: XR chest 1V portable DATE OF EXAM: 01/28/2023 6:47 AM COMPARISON: Chest radiographs from 01/27/2023 TECHNIQUE: XR chest 1V portable Portable AP radiograph of the chest. CLINICAL INDICATION:Male, 27 years old with history of Pneumothorax; FINDINGS: Lungs/Pleura: No pleural effusion. Similar left retrocardiac infiltrate regions of cavitation. Tiny l eft apical pneumothorax demonstrated. Pulmonary vascularity: Unremarkable. Heart/mediastinum: Cardiomediastinal silhouette is unremarkable. Musculoskeletal: No acute osseous pathology. Other findings: None Lines/Tubes: Stable left chest tube. IMPRESSION: 1. Tiny left apical pneumothorax with stable left chest tube. 2. Similar left retrocardiac infiltrate with regions of cavitation.
--- NOTE | 2023-01-28 08:08 | P.PN ---
Subjective Progress Note Date: 01/28/23 Principal diagnosis: Traumatic left-sided pneumothorax status post fall from ladder, possible pulmonary contusion, cavitating infiltrate left lower lobe on CT scan, L1 to L4 transverse process fractures, hemoptysis. History of ADHD, current tobacco dependence, EtOH use POD #3 placement of left-sided thoravent by the emergency room physicians The patient was seen and examined this morning sitting up in bed in no acute distress. States he did have some pain last night but controlled this morning. Denies shortness of breath. Currently on room air with oxygen saturation in the mid 90s. Occlusive cap placed to left-sided thoravent yesterday afternoon, chest x-ray reviewed this morning, stable. Will discontinue thoravent. No other new concerns. Objective - Vital Signs Vital signs: Vital Signs Temp 98.7 F 01/28/23 04:00 Pulse 80 01/28/23 04:00 Resp 16 01/28/23 04:00 BP 134/70 01/28/23 04:00 Pulse Ox 95 01/28/23 04:00 FiO2 Intake & Output 01/27/23 01/28/23 01/28/23 18:59 06:59 18:59 Intake Total 476 957 Output Total 1 Balance 475 957 Intake: Oral 476 957 Output: Urine 1 Other: Voiding Method Urinal # Voids 1 - Exam CONSTITUTIONAL: Appears mostly comfortable, cooperative, no acute distress RESPIRATORY: Lungs sounds diminished bilaterally. Respirations even, nonlabored. Currently on room air with oxygen saturation 95%. Able to achieve 1500 mL on incentive spirometry. Strong cough. CARDIOVASCULAR: S1, S2 present. Regular rate and rhythm, sinus rhythm on telemetry. Palpable peripheral pulses bilaterally. No edema present GASTROINTESTINAL: Abdomen soft, nontender, nondistended. Active bowel sounds present 4 quadrants. Tolerating diet GENITOURINARY: Continues to void INTEGUMENTARY: Skin is warm and dry NEUROLOGIC: Cranial nerves II through XII intact MUSKULOSKELETAL: Able to move all extremities, strength equal bilaterally PSYCHIATRIC: Alert and oriented to person place and time, appropriate affect, intact judgment and insight INVASIVE LINES AND TUBES: Left sided thoravent present with occlusive cap - Allied health notes Allied health notes reviewed: nursing - Labs CBC & Chem 7: 01/27/23 08:27 01/27/23 08:27 Labs: Abnormal Lab Results - Last 24 Hours (Table) 01/27/23 Range/Units 08:27 Carbon Dioxide 31 H (22-30) mmol/L Glucose 104 H (74-99) mg/dL Total Bilirubin 1.4 H (0.2-1.3) mg/dL Total Protein 6.2 L (6.3-8.2) g/dL - Imaging and Cardiology Chest x-ray: report reviewed, image reviewed Assessment and Plan Assessment: 1. Traumatic left-sided pneumothorax status post fall from ladder, status post placement of left-sided thoravent by the emergency room physician 2. Possible pulmonary contusion 3. Cavitating infiltrate left lower lobe on CT scan 4. L1 to L4 transverse process fractures 5. Hemoptysis 6. ADHD 7. Current tobacco dependence 8. EtOH use Plan: 1. Will discontinue thoravent. Repeat CXR at noon. If stable, may discharge patient to home from our standpoint 2. Continue to encourage incentive spirometry 10 times every hour while awake 3. Pain control per medication regimen 4. Risk factor modification including complete smoking cessation discussed with the patient 5. Increase activity as tolerated. Needs LSO brace for activity per orthopedic recommendations 6. Medical management of the comorbidities per internal medicine/trauma services 7. Will sign off, please call us with any further questions
[2023-01-28] MEDS ORDERED: THIAMINE 100 MG TAB PO SCH (09:00)
[2023-01-28] MEDS: HYDROcodone/APAP 5-325MG 1 EACH TAB PO PRN ×2 (09:15→18:10)
[2023-01-28] MEDS: MULTIVITAMINS, THERA 1 EACH TAB PO SCH (09:15)
[2023-01-28] MEDS: NICOTINE 21MG/24HR PATCH TRANSDERM SCH (09:15)
[2023-01-28] MEDS: FAMOTIDINE 20 MG TAB PO SCH (09:15)
[2023-01-28] MEDS: GABAPENTIN 300 MG CAP PO SCH (09:15)
[2023-01-28 11:53] VITALS: BP 127/57; PULSE 79; RESP 17; TEMP 97.4
--- NOTE | 2023-01-28 12:24 | XR ---
EXAMINATION TYPE: XR chest 1V portable DATE OF EXAM: 01/28/2023 12:18 PM COMPARISON: Chest radiographs from earlier today. TECHNIQUE: XR chest 1V portable Portable AP radiograph of the chest. CLINICAL INDICATION:Male, 27 years old with history of post thoravent removal; FINDINGS: Lungs/Pleura: No pleural effusion. Marginal decrease in tiny left apical pneumothorax. Similar left r etrocardiac infiltrate with regions of cavitation. Pulmonary vascularity: Unremarkable. Heart/mediastinum: Cardiomediastinal silhouette is unremarkable. Musculoskeletal: No acute osseous pathology. Other findings: None Lines/Tubes: Interval removal of left Thoravent. IMPRESSION: Removal of left Thoravent with marginal decrease in tiny left apical pneumothorax. Similar left retrocardiac infiltrate with regions of cavitation.
--- NOTE | 2023-01-28 13:07 | P.PN ---
Subjective Progress Note Date: 01/28/23 This is a very pleasant 27-year-old male patient with a history of ADHD, chronic and ongoing tobacco dependence. He presented to the emergency room yesterday after sustaining a fall from a ladder approximately 8 feet landing on cement. He did apparently lose consciousness for a few seconds. We'll obtain a fall he was having some hemoptysis and was brought into the emergency room. Computed tomography scan of the head revealed no traumatic injury. Chest x-ray revealed a large left-sided pneumothorax and patchy atelectasis at the left lung base. No noted fractures. A computed tomography scan of the chest, pelvis and abdomen noted again the large left-sided pneumothorax with a cavitating infiltrates a left lower lobe secondary to home a contusion or hemorrhage. There was multiple left transverse process fractures of the lumbar spine L1-L4. No evidence of organ injury in the abdomen/pelvis. A left-sided Thora-vent was placed in the emergency department. White count 9.6. Hemoglobin 13.2. Sodium 138. Potassium 4.0. Bicarb 31. BUN 11. Creatinine 0.93. Urine drug screen was positive for opiates. Alcohol less than 10. He was admitted for further observation. He is seen today in consultation on the selective care unit. He is just coming back from a shoulder x-ray as he still having some left shoulder discomfort. No acute fractures noted. Less than 5% left apical pneumothorax on x-ray. Coughing up some small amount of dark blood. He is maintaining O2 saturations up to 100% on 2 L nasal cannula. Afebrile. Hemodynamically stable. The patient is seen today 01/27/2023 in follow-up on the selective care unit. He is currently sitting up in bed. Awake and alert in no acute distress. Left- sided Thora vent remains in place and capped. Still with a leak when coughing. Chest x-ray shows no evidence of pneumothorax. No acute cardiopulmonary process. Continues to work with the incentive spirometer. White count 6.0. Hemoglobin 13.7. Sodium 140. Potassium 4.8. Bicarb 31. BUN 14. Creatinine 0.82. Glucose 104. Adequate pain control. The patient is seen today 01/28/2023 in follow-up on the selective care unit. He is currently sitting up at the bedside. Awake and alert in no acute distress. Continues to maintain good O2 saturations in the 90s on room air. No significant chest pain. Chest x-ray reveals near complete resolution of the left-sided pneumothorax. Thora vent was removed by CT services earlier today. Follow-up chest x-ray reveals a tiny left apical pneumothorax. No new labs today. Continues to work with the incentive spirometer. NicoDerm patch in place. Objective - Vital Signs Vital signs: Vital Signs Temp 97.4 F L 01/28/23 11:51 Pulse 79 01/28/23 11:51 Resp 17 01/28/23 11:51 BP 127/57 01/28/23 11:51 Pulse Ox 98 01/28/23 11:51 FiO2 Intake & Output 01/27/23 01/28/23 01/28/23 18:59 06:59 18:59 Intake Total 476 957 118 Output Total 1 Balance 475 957 118 Intake: Oral 476 957 118 Output: Urine 1 Other: Voiding Method Urinal # Voids 1 - Exam GENERAL EXAM: Alert, active pleasant 27-year-old male, on room air, comfortable in no apparent distress. HEAD: Normocephalic. EYES: Normal reaction of pupils, equal size. NOSE: Clear with pink turbinates. THROAT: No erythema or exudates. NECK: No masses, no JVD. CHEST: No chest wall deformity. Left sided Thora-Vent removed. LUNGS: Equal air entry with faint crackles in the left base. CVS: S1 and S2 normal with no audible murmur, regular rhythm. ABDOMEN: No hepatosplenomegaly, normal bowel sounds, no guarding or rigidity. SPINE: No scoliosis or deformity SKIN: No rashes CENTRAL NERVOUS SYSTEM: No focal deficits, tone is normal in all 4 extremities. EXTREMITIES: There is no peripheral edema. No clubbing, no cyanosis. Peripheral pulses are intact. - Labs CBC & Chem 7: 01/27/23 08:27 01/27/23 08:27 Assessment and Plan Assessment: Dyspnea secondary to traumatic left-sided pneumothorax following a fall from a ladder at approximately 8 feet. Status post Thora-Vent placement on 01/25/2023 and subsequent removal today 01/28/2023. Follow-up chest x-ray reveals a tiny left apical pneumothorax. Hemoptysis secondary to above with suspected pulmonary contusion, resolved Left sided chest wall and left shoulder pain. No evidence of fractures History of chronic and ongoing tobacco dependence History of ADHD Plan: The patient was seen and evaluated Chest x-ray, medications reviewed Thora-vent removed Follow up chest x-ray has just a tiny left apical pneumothorax Cleared for discharge from the pulmonary standpoint Follow-up in the office in 1 week I have personally seen and examined the patient, performed the documentation and the assessment and plan as written. Number of minutes spent on the visit: 10.
--- NOTE | 2023-01-28 14:31 | P.DS ---
Providers Date of admission: 01/25/23 18:56 Expected date of discharge: 01/28/23 Attending physician: Ahsan Atkinson Consults: 01/25/23 18:54 Consult Physician Urgent Consulting Provider: Cody Ortiz Consult Reason/Comments: Lumbar transverse process fracture Do you want consulting provider notified?: Already Contacted Consult Physician Urgent Consulting Provider: Christina Mcmanus Consult Reason/Comments: Pneumothorax Do you want consulting provider notified?: Yes 01/26/23 08:17 Consult Physician Routine Consulting Provider: Antonio De León Consult Reason/Comments: traumatic ptx Do you want consulting provider notified?: Yes 01/26/23 10:02 Consult Physician Routine Consulting Provider: Terrie Ward Consult Reason/Comments: medical management Do you want consulting provider notified?: Yes [facility] care physician[facility] Course: Discharge diagnosis 1. Fall with trauma 2. Traumatic left pneumothorax status post Thoravent with removal 3. L1 to L4 left transverse process fractures 4. Pulmonary contusion 5. Heavy alcohol use 6. Nicotine dependence. Patient educated on smoking cessation 7. Left shoulder pain no evidence of fracture on x-ray Hospital course This is a 27-year-old male who fell from an 8 foot ladder landing on cement. He presented to the hospital with complaints of left trunk pain. He was found to have a left pneumothorax and fracture of L1 to L4 lumbar spine. Patient did have Thoravent placed in the ER for the pneumothorax. He's been followed by the cardiothoracic service and pulmonary service. The Thoravent was removed today. Chest x-ray shows marginal decrease in tiny left apical pneumothorax. Similar left retrocardiac infiltrate with regions of cavitation. Patient's chest x-ray has been reviewed by both pulmonary and her thoracic service. They have cleared patient for discharge. Patient also seen by orthopedic service during this admission. They had ordered an LSO brace for his lumbar spine fractures and have cleared patient for discharge. Patient is on room air. He's afebrile. His pain is controlled. He has been up and ambulating. He has been cleared by all consulting physicians for discharge. Please refer to chart for any further details. Physician Instrument Checker note has been reviewed by physician. Signing provider agrees with the documented findings, assessment, and plan of care. Patient Condition at Discharge: Stable Plan - Discharge Summary New Discharge Prescriptions: New Nicotine 21Mg/24Hr Patch [Habitrol] 1 each TRANSDERM DAILY #30 patch Ibuprofen [Motrin] 600 mg PO Q8HR PRN #30 tab PRN Reason: Pain HYDROcodone/APAP 5-325MG [Broughton 5-325] 1 tab PO Q6HR PRN 3 Days #12 tab PRN Reason: Pain Continue traZODone HCL [Desyrel] 50 mg PO HS Gabapentin [Neurontin] 300 mg PO BID No Action cloNIDine HCL [Catapres] 0.1 mg PO BID Discharge Medication List Gabapentin [Neurontin] 300 mg PO BID 01/25/23 [History] cloNIDine HCL [Catapres] 0.1 mg PO BID 01/25/23 [History] traZODone HCL [Desyrel] 50 mg PO HS 01/25/23 [History] HYDROcodone/APAP 5-325MG [Broughton 5-325] 1 tab PO Q6HR PRN 3 Days #12 tab 01/28/23 [Rx] Ibuprofen [Motrin] 600 mg PO Q8HR PRN #30 tab 01/28/23 [Rx] Nicotine 21Mg/24Hr Patch [Habitrol] 1 each TRANSDERM DAILY #30 patch 01/28/23 [Rx] Follow up Appointment(s)/Referral(s): Christina Mcmanus MD [STAFF PHYSICIAN] - 1 Week Cody Ortiz DO [Doctor of Osteopathic Medicine] - 1 Week Javier Ceballos DO [Primary Care Provider] - 1-2 days Activity/Diet/Wound Care/Special Instructions: Medicine service to complete discharge med rec DISCHARGE INSTRUCTIONS: 1. No driving for 2 weeks, or until physician gives their ok. 2. No lifting, pushing, or pulling more than 10 pounds for 2 weeks. The physician will advise of any restriction changes. 3. Continue pain control per as needed orders. Alternate acetaminophen (Tylenol) and ibuprofen (Motrin/Advil) for pain. 4. Continue with incentive spirometry and splinting until otherwise directed by the physician. 5. Leave chest tube dressing for 48 hours. After that, remove all dressings and shower daily. 6. Routine incision care. No powders, lotions, ointments on incisions. 7. Please call surgeon/CARDING DOUBLER for temp greater than 101 F or purulent drainage from incisions. 8. Smoking cessation counseling and program information provided. Quitting smoking is the most important step you can take to improve your health. For additional information and assistance to quit smoking, please call the [place] tobacco quit line (9-850-XWNR-NOW/ ) or online: [email or web address].gov/[email or web address] it-[email or web address] Discharge/Stand Alone Forms: AA Amanda York, Outpatient Counseling, In Substance Abuse Facilities, Personal Fourchette Sewer Discharge Disposition: HOME SELF-CARE
--- NOTE | 2023-01-28 23:41 | P.PN ---
Subjective Progress Note Date: 01/27/23 Patient is a 27-year-old male with a known history of ADD/ADHD, currently everyday smoker presents to ER status post fall from ladder approximately about 8 feet height. Patient states that he is slipped and fell on the concrete, landed on his left shoulder. Patient states that he did lose his consciousness for about few seconds. He was also having hemoptysis and was brought to ER. Otherwise patient denies any recent illnesses. On admission chest x-ray showed left-sided pneumothorax. Atelectasis PIC in the left lung. No obvious rib fracture. Possible hiatal hernia. X-ray pelvis showed no fracture normal pelvis. CT head and cervical spine showed no acute abnormality. Abdomen CT showed left- sided pneumothorax with cavitating infiltrate left lower lobe that could be pulmonary contusion and hemorrhage. Multiple left transverse process fractures of the lumbar spine. No rib fracture seen. No evidence of organ injury within the abdomen pelvis. Laboratory data showed WBC 19.8 hemoglobin 15.8 and platelets 429 Sodium 139 potassium 4.2 chloride 104 bicarb is 27 BUN 12 and creatinine 0.84 total bilirubin was 1.7 and AST 74 ALT 46 alk phos 70 and Urine toxicology showed opiates. 01/27/2023 Patient is currently resting in bed. Awake alert oriented x3. No complaints of chest pain or worsening shortness of breath. Left upper chest Thora vent is in place. capped. No complaints of fever or chills. Patient is using incentive spirometry. Repeat chest x-ray today showed no acute cardiopulmonary process. Left thoracotomy device without evidence for pneumothorax. Laboratory data showed WBC 6.0 hemoglobin 13.7 and platelets 287 sodium 140 potassium 4.8 chloride 104 bicarb is 31 BUN 14 and creatinine 0.82 and total bilirubin level is trending down to 1.4. Current medications reviewed. Objective - Vital Signs Vital signs: Vital Signs Temp 98.1 F 01/27/23 12:15 Pulse 88 01/27/23 16:00 Resp 18 01/27/23 16:00 BP 134/59 01/27/23 16:00 Pulse Ox 81 L 01/27/23 16:00 FiO2 Intake & Output 01/27/23 01/27/23 01/28/23 06:59 18:59 06:59 Intake Total 480 476 237 Output Total 550 1 Balance -70 475 237 Intake: Oral 480 476 237 Output: Urine 550 1 Other: Voiding Method Urinal - Exam PHYSICAL EXAMINATION: Patient is lying in the bed comfortably, no acute distress, awake alert and oriented.. HEENT: Normocephalic. Neck is supple. Pupils reactive. Nostrils clear. Oral cavity is moist. Neck reveals no JVD, carotid bruits, or thyromegaly. CHEST EXAMINATION: Trachea is central. Symmetrical expansion. Lung hadley clear to auscultation and percussion. Left upper chest thora-vent CARDIAC: Normal S1, S2 with no gallops. No murmurs ABDOMEN: Soft. Bowel sounds present. Nontender. No organomegaly. No abdominal bruits. Extremities: reveal no edema. No clubbing or cyanosis Neurologically awake, alert, oriented x3 with well-coordinated movements. No focal deficits noted Skin: No rash or skin lesions. Psychiatric: Coperative. Nonsuicidal, Musculoskeletal: No joint swelling or deformity. Normal range of motion. - Labs CBC & Chem 7: 01/27/23 08:27 01/27/23 08:27 Labs: Abnormal Lab Results - Last 24 Hours (Table) 01/27/23 Range/Units 08:27 Carbon Dioxide 31 H (22-30) mmol/L Glucose 104 H (74-99) mg/dL Total Bilirubin 1.4 H (0.2-1.3) mg/dL Total Protein 6.2 L (6.3-8.2) g/dL Assessment and Plan Assessment: Left-sided pneumothorax. Status post Thora vent placement in the ER Status post mechanical fall from the ladder about 8 feet height. Hemoptysis likely due to lung contusion and hemorrhage. No active symptoms currently. Multiple left transverse process fractures of the lumbar spine Leukocytosis likely reactive resolved now ADD/ADHD Currently everyday smoker DVT prophylaxis with SCDs. Plan: Patient is status post Thora vent placement on 01/25/[address] surgery and pulmonary is on board. Encourage incentive spirometry and DVT prophylaxis SCDs. Continue pain management and follow-up closely. Continued home medications and further recommendations based on the clinical course. Follow-up CBC and BMP tomorrow.
--- NOTE | 2023-01-28 23:44 | P.PN ---
Subjective Progress Note Date: 01/28/23 Patient is a 27-year-old male with a known history of ADD/ADHD, currently everyday smoker presents to ER status post fall from ladder approximately about 8 feet height. Patient states that he is slipped and fell on the concrete, landed on his left shoulder. Patient states that he did lose his consciousness for about few seconds. He was also having hemoptysis and was brought to ER. Otherwise patient denies any recent illnesses. On admission chest x-ray showed left-sided pneumothorax. Atelectasis PIC in the left lung. No obvious rib fracture. Possible hiatal hernia. X-ray pelvis showed no fracture normal pelvis. CT head and cervical spine showed no acute abnormality. Abdomen CT showed left- sided pneumothorax with cavitating infiltrate left lower lobe that could be pulmonary contusion and hemorrhage. Multiple left transverse process fractures of the lumbar spine. No rib fracture seen. No evidence of organ injury within the abdomen pelvis. Laboratory data showed WBC 19.8 hemoglobin 15.8 and platelets 429 Sodium 139 potassium 4.2 chloride 104 bicarb is 27 BUN 12 and creatinine 0.84 total bilirubin was 1.7 and AST 74 ALT 46 alk phos 70 and Urine toxicology showed opiates. 01/27/2023 Patient is currently resting in bed. Awake alert oriented x3. No complaints of chest pain or worsening shortness of breath. Left upper chest Thora vent is in place. capped. No complaints of fever or chills. Patient is using incentive spirometry. Repeat chest x-ray today showed no acute cardiopulmonary process. Left thoracotomy device without evidence for pneumothorax. Laboratory data showed WBC 6.0 hemoglobin 13.7 and platelets 287 sodium 140 potassium 4.8 chloride 104 bicarb is 31 BUN 14 and creatinine 0.82 and total bilirubin level is trending down to 1.4. 01/28/2023 Patient is resting in bed. Awake alert and oriented x3. Thora vent was removed this morning. No complaints of chest pain or worsening shortness of breath. Currently on room air. Chest x-ray this morning possible tiny left apical pneumothorax with a stable left chest tube. Similar left retrocardiac infiltrate with regions of cavitation. Chest x-ray in the afternoon shows removal of left Thora vent with a marginal decrease in tiny left apical pneumothorax. Patient is being continued on incentive spirometry. He is being discharged home today. Discharge medication reconciliation was done. Current medications reviewed. Objective - Vital Signs Vital signs: Vital Signs Temp 97.3 F L 01/28/23 07:35 Pulse 73 01/28/23 07:35 Resp 16 01/28/23 09:20 BP 117/69 01/28/23 07:35 Pulse Ox 98 01/28/23 07:35 FiO2 Intake & Output 01/27/23 01/28/23 01/28/23 18:59 06:59 18:59 Intake Total 476 957 118 Output Total 1 Balance 475 957 118 Intake: Oral 476 957 118 Output: Urine 1 Other: Voiding Method Urinal # Voids 1 - Exam PHYSICAL EXAMINATION: Patient is lying in the bed comfortably, no acute distress, awake alert and oriented.. HEENT: Normocephalic. Neck is supple. Pupils reactive. Nostrils clear. Oral cavity is moist. Neck reveals no JVD, carotid bruits, or thyromegaly. CHEST EXAMINATION: Trachea is central. Symmetrical expansion. Lung hadley clear to auscultation and percussion. CARDIAC: Normal S1, S2 with no gallops. No murmurs ABDOMEN: Soft. Bowel sounds present. Nontender. No organomegaly. No abdominal bruits. Extremities: reveal no edema. No clubbing or cyanosis Neurologically awake, alert, oriented x3 with well-coordinated movements. No focal deficits noted Skin: No rash or skin lesions. Psychiatric: Coperative. Nonsuicidal, Musculoskeletal: No joint swelling or deformity. Normal range of motion. - Labs CBC & Chem 7: 01/27/23 08:27 01/27/23 08:27 Assessment and Plan Assessment: Left-sided pneumothorax. Status post Thora vent placement in the ER Status post mechanical fall from the ladder about 8 feet height. Hemoptysis likely due to lung contusion and hemorrhage. No active symptoms currently. Multiple left transverse process fractures of the lumbar spine Leukocytosis likely reactive resolved now ADD/ADHD Currently everyday smoker DVT prophylaxis with SCDs. Plan: Patient is status post Thora vent placement on 01/25/[address] surgery and pulmonary is on board. Encourage incentive spirometry and DVT prophylaxis SCDs. Thora vent has been removed today. Repeat chest x-ray showed tiny apical pneumothorax left. Patient is being discharged home today. Recommend to follow with primary care physician and CT surgery as an outpatient.
== END 2023-01-28 18:13 | disposition home or self-care (01) | DRG 200 ==
LOC: EC 16:38 → 3SCARD 18:56
PROVIDERS: ADMIT Surgery; ATTEND Surgery
PROC: 0W9B30Z Drainage of Left Pleural Cavity with Drainage Device, Percutaneous Approach (ICD-10-PCS; principal; 2023-01-25)
DX: S27.0XXA Traumatic pneumothorax, initial encounter (principal); J98.11 Atelectasis; S27.329A Contusion of lung, unspecified, initial encounter; S32.019A Unspecified fracture of first lumbar vertebra, initial encounter for closed fracture; S32.029A Unspecified fracture of second lumbar vertebra, initial encounter for closed fracture; S32.039A Unspecified fracture of third lumbar vertebra, initial encounter for closed fracture; S32.049A Unspecified fracture of fourth lumbar vertebra, initial encounter for closed fracture; R04.2 Hemoptysis; M25.512 Pain in left shoulder; F17.210 Nicotine dependence, cigarettes, uncomplicated; W11.XXXA Fall on and from ladder, initial encounter; Z71.3 Dietary counseling and surveillance; F90.9 Attention-deficit hyperactivity disorder, unspecified type; K44.9 Diaphragmatic hernia without obstruction or gangrene; D72.829 Elevated white blood cell count, unspecified; Z28.310 Unvaccinated for COVID-19; Z28.21 Immunization not carried out because of patient refusal; Z71.6 Tobacco abuse counseling
CPT/HCPCS: 32551; 36415; 70450; 71045; 71046; 71260; 72125; 72170; 74177; 80053; 80306; 80320; 85025; 85610; 85730; 86850; 86900; 86901; 93005; 96374; 99291